=== PATIENT | male | born 1990 ===

== ENCOUNTER 2017-10-24 11:54 | Inpatient (IN) | payer MEDICAID ==
[2017-10-24 12:03] VITALS: BMI 24.8
[2017-10-24] MEDS ORDERED: Sodium Chloride 0.9% 1,000 ML IV ONE ×4 (12:46→17:28)
[2017-10-24] MEDS ORDERED: Sodium Chloride 0.9% 1,000 ML ONE (13:01)
[2017-10-24 13:05] LABS: BASO % 0.4 % (0.0-2.0); HEMOGLOBIN 16.1 g/dL (12.0-18.0); LYMPH # 0.4 K/uL (1.0-4.3); MEAN CELL VOLUME 96.3 fL (80.0-94.0); MEAN CORPUSCULAR HEMOGLOBIN 33.9 pg (27.0-31.0); MEAN CORPUSCULAR HGB CONC 35.2 g/dL (33.0-37.0); MEAN PLATELET VOLUME 8.5 fL (7.2-11.7); MONO # 1.3 K/uL (0.0-0.8); MONO % 12.8 % (0.0-10.0); NEUT # 8.7 K/uL (1.8-7.0); NEUT % 82.8 % (50.0-75.0); NRBC % 0.1 % (0.0-2.0); PLATELET COUNT 225 K/uL (130-400); RBC 4.74 Mil/uL (4.40-5.90); RED CELL DISTRIBUTION WIDTH 13.1 % (11.5-14.5); WHITE BLOOD COUNT 10.5 K/uL (4.8-10.8)
[2017-10-24 13:09] LABS: URINE BILIRUBIN NEGATIVE (NEGATIVE); URINE BLOOD NEGATIVE (NEGATIVE); URINE CLARITY Hazy (Clear); URINE COLOR Amber (YELLOW); URINE GLUCOSE (UA) NORMAL (Normal); URINE LEUKOCYTE ESTERASE NEG Leu/uL (Negative); URINE PROTEIN 2+ mg/dL (NEGATIVE)
[2017-10-24 13:25] LABS: ALB/GLOB RATIO 1.6 (1.0-2.1); ALBUMIN 5.3 g/dL (3.5-5.0); ALT/SGPT 55 U/L (21-72); AST/SGOT 52 U/L (17-59); BLOOD UREA NITROGEN 8 mg/dL (9-20); CALCIUM 9.6 mg/dl (8.6-10.4); GFR AFRICAN-AMERICAN > 60; GFR NON-AFRICAN AMERICAN > 60
[2017-10-24 13:39] LABS: LIPASE 10165 U/L (23-300)
[2017-10-24 13:48] LABS: BANDS 1 % (0-2); LYMPHOCYTE 6 % (20-40); MONOCYTE 10 % (0-10); NEUTROPHIL 83 % (50-75); PLATELET ESTIMATE NORMAL (NORMAL); TOTAL CELLS COUNTED 100
[2017-10-24] MEDS ORDERED: Morphine 4 MG/ML VIAL ONE (13:57)
--- NOTE | 2017-10-24 14:51 | C.PDOC ---
History Of Present Illness 26-year-old male, with no significant past medical or surgical history, presents to the ED for evaluation of epigastric abdominal pain which began this morning. Patient reports he had four episodes after drinking water and juice. Patient denies fever, chills, dysuria, hematuria, eating new foods. Time Seen by Provider: 10/24/17 12:18 Chief Complaint (Nursing): Abdominal Pain History Per: Patient History/Exam Limitations: no limitations Onset/Duration Of Symptoms: Hrs Current Symptoms Are (Timing): Still Present Location Of Pain/Discomfort: Epigastric Radiation Of Pain To:: None Quality Of Discomfort: "Pain" Associated Symptoms: Vomiting. denies: Fever, Chills, Urinary Symptoms Additional History Per: Patient Past Medical History Reviewed: Historical Data, Nursing Documentation, Vital Signs Vital Signs: Last Vital Signs Temp 98.6 F 10/24/17 18:24 Pulse 80 10/24/17 18:24 Resp 18 10/24/17 18:24 BP 136/100 H 10/24/17 18:24 Pulse Ox 99 10/24/17 18:24 - Medical History PMH: No Chronic Diseases Surgical History: No Surg Hx Family History: States: Unknown Family Hx - Social History Hx Alcohol Use: Yes Hx Substance Use: No - Immunization History Hx Tetanus Toxoid Vaccination: No Hx Influenza Vaccination: No Hx Pneumococcal Vaccination: No Review Of Systems Constitutional: Negative for: Fever, Chills Gastrointestinal: Positive for: Vomiting, Abdominal Pain (epigastric ) Genitourinary: Negative for: Dysuria, Hematuria Physical Exam - Physical Exam Appears: Non-toxic, No Acute Distress Skin: Normal Color, Warm, Dry Head: Atraumatic, Normacephalic Eye(s): bilateral: Normal Inspection Oral Mucosa: Moist Neck: Supple Chest: Symmetrical, No Deformity, No Tenderness Cardiovascular: Rhythm Regular, No Murmur Respiratory: Normal Breath Sounds, No Rales, No Rhonchi, No Wheezing Gastrointestinal/Abdominal: Bowel Sounds (active), Soft, Tenderness (mild, epigastric ), No Distention, No Guarding, No Rebound, No Hernia Extremity: Normal ROM, Capillary Refill (less than 2 seconds ) Neurological/Psych: Oriented x3, Normal Speech, Normal Cognition Gait: Steady ED Course And Treatment - Laboratory Results Result Diagrams: 10/24/17 12:56 10/24/17 12:56 O2 Sat by Pulse Oximetry: 98 (on RA) Pulse Ox Interpretation: Normal Medical Decision Making Medical Decision Making: Progress: Bloodwork, urinalysis, CT A/P ordered and reviewed. Morphine IVP, Zofran IVP, and IV Fluids administered. On first re-exam the patient reports no improvement of symptoms. Morphine IV ordered and NS IVF continued. The case was discussed with Dr. Ismael Nolasco (hospitalist) who agrees to admit the patient to the hospitalist service under Dr. Dickinson. Disposition - Disposition Disposition: HOSPITALIZED Disposition Time: 17:00 Condition: STABLE - Clinical Impression Clinical Impression: Acute pancreatitis - PA / [employer] / Resident Statement MD/DO has reviewed & agrees with the documentation as recorded. - Scribe Statement The provider has reviewed the documentation as recorded by the Scribe (Orin Nolasco) All medical record entries made by the Scribe were at my direction and personally dictated by me. I have reviewed the chart and agree that the record accurately reflects my personal performance of the history, physical exam, medical decision making, and the department course for this patient. I have also personally directed, reviewed, and agree with the discharge instructions and disposition.
[2017-10-24] MEDS ORDERED: Iodixanol 320 MG/ML 100 ML BOTTLE IV ONE (15:10)
--- NOTE | 2017-10-24 16:39 | CT ---
PROCEDURE: CT abdomen and pelvis dated 10/24/2017 HISTORY: Epigastric - abdominal pain, pancreatitis COMPARISON: None. TECHNIQUE: Contiguous axial images of the abdomen and pelvis of performed following intravenous injection of 100 cc Visipaque 320 contrast material. Additional 2D sagittal and coronal Sagittal reformats generated. Radiation dose: Total exam DLP = 299 mGy-cm. This CT exam was performed using one or more of the following dose reduction techniques: Automated exposure control, adjustment of the mA and/or kV according to patient size, and/or use of iterative reconstruction technique. FINDINGS: LOWER THORAX: Mild passive/dependent type atelectasis both posterior lower lung zones. No mundo effusion. No evidence of basilar pneumothorax. . There is a small calcified granuloma the right lateral lung base. Small hiatal hernia. Heart size within range of normal. No significant pericardial effusion. LIVER: Liver exhibits relatively normal size measuring just over 17 cm in CC dimension. Moderate to fairly significant fatty hepatic infiltration. No obvious hepatic mass or collection. Portal and splenic veins are opacified. GALLBLADDER AND BILE DUCTS: Gallbladder physiologically distended. No evidence of intraluminal gallbladder calculi. PANCREAS: The pancreatic head and body is edematous in appearance consistent with this patient's history of pancreatitis. There are a infiltration changes seen in the peripancreatic mesentery with fluid seen along the posterior body of pancreas extending into the left pararenal space and left paracolic gutter. Is also small amount of infiltration and fluid seen adjacent to the descending and transverse portion of the duodenum extending into the right para renal space and right paracolic gutter. Infiltration changes also seen in mesenteries upper abdomen. . Ascites fluid seen in the mid to lower posterior abdomen adjacent to several loops of small bowel with a moderate ascites fluid within the pelvis as well. . SPLEEN: Spleen exhibits normal size and attenuation pattern without mass collection or calcification. ADRENALS: No obvious adrenal lesions KIDNEYS AND URETERS: Kidneys demonstrate relatively symmetric nephrograms. No evidence of nephrolithiasis or hydronephrosis. There is a cortical defect posterior superior margin of the right kidney likely representing scarring with a small subjacent 14 mm cyst low-attenuation focus that may represent hyperdense cyst. . There appears be small amount of left perirenal fluid. BLADDER: Urinary bladder incompletely distended which presumably accounts thick-walled appearance. Muscular hypertrophy may contribute. Correlation with urinalysis recommended to assess the cystitis. REPRODUCTIVE: Prostate gland unremarkable APPENDIX: What is felt to represent the normal appendix best seen on axial image number [id number]. No periappendiceal inflammatory changes. BOWEL: Evaluation of the bowel is somewhat limited due to the lack of oral contrast material. Stomach is distended with air. Hyperdense debris is present within the lumen of the stomach as well as scattered several loops of small bowel and at ascending/proximal transverse colon. . B distal transverse colon/splenic flexure region descending and sigmoid colon are collapsed therefore difficult to evaluate. PERITONEUM: As above. No free intraperitoneal air. Small fat containing bilateral inguinal hernias. There is small fat containing umbilical hernia. LYMPH NODES: Unremarkable. No enlarged lymph nodes. VASCULATURE: Unremarkable. No no evidence of abdominal aortic or iliac artery aneurysms. BONES: Osseous structures intact. No significant degenerative spondylosis. OTHER FINDINGS: None. IMPRESSION: Findings consistent with acute pancreatitis with surrounding peripancreatic infiltration and fluid which extends inferiorly along the left and right para renal and paracolic gutter spaces. Small amount of ascites seen within the mid lower abdomen with moderate amount of the ascites fluid present within the pelvis. Wall thickening urinary bladder likely due to incomplete distention and muscular hypertrophy however cystitis not excluded ; correlation with urinalysis. Fatty hepatic infiltration.
[2017-10-24 19:25] VITALS: RESP 20
[2017-10-24] MEDS: Morphine 4 MG/ML VIAL IVP PRN (21:33)
[2017-10-24] MEDS: Sodium Chloride 0.9% 1,000 ML IV SCH (21:36)
--- NOTE | 2017-10-24 21:37 | CP.PCM.HP ---
<Brennan Sevilla - Last Filed: 10/24/17 21:16> History of Present Illness - History of Present Illness History of Present Illness: PGY1 Medicine H+P for Dr. Dickinson Patient is a 26 year old male with no significant past medical history is presenting to the hospital with a complaint of abdominal pain. The pain started last night and is described as sharp in nature. The pain is most severe in the epigastric region, radiating to his back. This is the first time he has ever had this pain. He attempted to drink some water and juice this morning but vomited soon after. He denies any blood in the vomit. He states that he drank 4 - 24oz beers yesterday after work. He usually only drinks 2 times per week. He has never experienced alcohol withdrawal symptoms and states that he does not feel like he needs to drink every day. He was treated in the emergency room but is still complaining of abdominal pain, but is no longer nauseous at this time. Denies fevers, chills, diarrhea, constipation, chest pain, shortness of breath, palpitations, headaches, vision changes, numbness, tingling or difficulty with balance. PMH: denies PSH: denies Family: unknown Social: drinks 4-24oz. beers two times per week (last drink yesterday), denies tobacco and illicit drug use. Works at a restaurant in [place]. Allergies: NKDA Present on Admission - Present on Admission Any Indicators Present on Admission: No Review of Systems - Review of Systems All systems: reviewed and no additional remarkable complaints except (as per HPI ) - Constitutional Constitutional: As Per HPI - EENT Eyes: As Per HPI Ears: As Per HPI Nose/Mouth/Throat: As Per HPI - Cardiovascular Cardiovascular: As Per HPI - Respiratory Respiratory: As Per HPI - Gastrointestinal Gastrointestinal: As Per HPI - Musculoskeletal Musculoskeletal: As Per HPI - Integumentary Integumentary: As Per HPI - Neurological Neurological: As Per HPI - Psychiatric Psychiatric: As Per HPI - Endocrine Endocrine: As Per HPI - Hematologic/Lymphatic Hematologic: As Per HPI Past Patient History - Infectious Disease Hx of Infectious Diseases: None - Past Medical History & Family History Past Medical History?: Yes - Past Social History Smoking Status: Unknown If Ever Smoked - MUSCULOSKELETAL/RHEUMATOLOGICAL Hx Falls: No - PSYCHIATRIC Hx Substance Use: No - ANESTHESIA Hx Anesthesia: Yes Hx Anesthesia Reactions: No Meds Allergies/Adverse Reactions: Allergies Allergy/AdvReac Type Severity Reaction Status Date / Time No Known Allergies Allergy Verified 10/24/17 11:57 Physical Exam - Constitutional Appears: Non-toxic, In Acute Distress - Head Exam Head Exam: ATRAUMATIC, NORMOCEPHALIC - Eye Exam Eye Exam: EOMI, Normal appearance. absent: Scleral icterus Pupil Exam: NORMAL ACCOMODATION - ENT Exam ENT Exam: Mucous Membranes Moist - Neck Exam Neck exam: Negative for: Lymphadenopathy - Respiratory Exam Respiratory Exam: Clear to Auscultation Bilateral, NORMAL BREATHING PATTERN. absent: Accessory Muscle Use, Rales, Rhonchi, Wheezes, Respiratory Distress - Cardiovascular Exam Cardiovascular Exam: REGULAR RHYTHM, +S1, +S2 - GI/Abdominal Exam GI & Abdominal Exam: Distended (per patient, mildly distended ), Guarding, Soft , Tenderness (diffuse, epigastric>upper quadrants b/l> lower quadrants b/l). absent: Firm, Hernia, Rigid - Extremities Exam Extremities exam: Positive for: normal inspection, pedal pulses present. Negative for: calf tenderness, pedal edema - Back Exam Back exam: absent: CVA tenderness (L), CVA tenderness (R) - Neurological Exam Neurological exam: Alert, CN II-XII Intact, Oriented x3 - Psychiatric Exam Psychiatric exam: Normal Affect, Normal Mood - Skin Skin Exam: Dry, Warm Results - Vital Signs Recent Vital Signs: Last Vital Signs Temp 98.8 F 10/24/17 19:00 Pulse 89 10/24/17 19:00 Resp 20 10/24/17 19:00 BP 142/86 10/24/17 19:00 Pulse Ox 98 10/24/17 19:04 - Labs Result Diagrams: 10/24/17 12:56 10/24/17 12:56 Labs: Laboratory Results - last 24 hr 10/24/17 10/24/17 10/24/17 12:56 12:56 12:56 WBC 10.5 RBC 4.74 Hgb 16.1 Hct 45.6 MCV 96.3 H MCH 33.9 H MCHC 35.2 RDW 13.1 Plt Count 225 MPV 8.5 Neut % (Auto) 82.8 H Lymph % (Auto) 4.0 L [place] % (Auto) 12.8 H Eos % (Auto) 0.0 Baso % (Auto) 0.4 Neut # (Auto) 8.7 H Lymph # (Auto) 0.4 L [place] # (Auto) 1.3 H Eos # (Auto) 0.0 Baso # (Auto) 0.0 Neutrophils % (Manual) 83 H Band Neutrophils % 1 Lymphocytes % (Manual) 6 L Monocytes % (Manual) 10 Platelet Estimate Normal Sodium 138 Potassium 4.0 Chloride 93 L Carbon Dioxide 27 Anion Gap 22 H BUN 8 L Creatinine 0.6 L Est GFR ( Amer) > 60 Est GFR (Non-Af Amer) > 60 Random Glucose 109 Calcium 9.6 Total Bilirubin 1.3 AST 52 ALT 55 Alkaline Phosphatase 67 Lactate Dehydrogenase 654 H Total Protein 8.6 H Albumin 5.3 H Globulin 3.3 Albumin/Globulin Ratio 1.6 Lipase 65416 H Urine Color Aruna Urine Clarity Hazy Urine pH 6.0 Ur Specific [place] 1.026 Urine Protein 2+ H Urine Glucose (UA) Normal Urine Ketones Trace Urine Blood Negative Urine Nitrate Negative Urine Bilirubin Negative Urine Urobilinogen 4.0 Ur Leukocyte Esterase Neg Urine WBC (Auto) 1 Assessment & Plan (1) Acute pancreatitis Assessment and Plan: most likely 2/2 alcohol Abd/Pelvis CT 10/24: Findings consistent with acute pancreatitis with surrounding peripancreatic infiltration and fluid which extends inferiorly along the left and right para renal and paracolic gutter spaces. Small amount of ascites seen within the mid lower abdomen with moderate amount of the ascites fluid present within the pelvis. Wall thickening urinary bladder likely due to incomplete distention and muscular hypertrophy however cystitis not excluded ; correlation with urinalysis. Fatty hepatic infiltration. Lipase 97609 Morphine 2mg IVP Q4H prn Zofran 4mg IVP Q6H prn NS @150mL/hr NPO CIWA protocol prn Ativan 2mg IVP Q6H prn Status: Acute (2) Prophylactic measure Assessment and Plan: SCDs only - AC not indicated, patient ambulates Protonix 40mg IVP daily Status: Acute - Assessment and Plan (Free Text) Assessment: case discussed with Dr. Teena Amin Di PGY1 <Altaf Dickinson - Last Filed: 10/25/17 07:03> Results - Vital Signs Recent Vital Signs: Last Vital Signs Temp 99.3 F 10/24/17 23:32 Pulse 80 10/24/17 23:32 Resp 20 10/24/17 23:32 BP 151/90 H 10/24/17 23:32 Pulse Ox 98 10/24/17 23:32 - Labs Result Diagrams: 10/24/17 12:56 10/24/17 12:56 Labs: Laboratory Results - last 24 hr 10/24/17 10/24/17 10/24/17 12:56 12:56 12:56 WBC 10.5 RBC 4.74 Hgb 16.1 Hct 45.6 MCV 96.3 H MCH 33.9 H MCHC 35.2 RDW 13.1 Plt Count 225 MPV 8.5 Neut % (Auto) 82.8 H Lymph % (Auto) 4.0 L [place] % (Auto) 12.8 H Eos % (Auto) 0.0 Baso % (Auto) 0.4 Neut # (Auto) 8.7 H Lymph # (Auto) 0.4 L [place] # (Auto) 1.3 H Eos # (Auto) 0.0 Baso # (Auto) 0.0 Neutrophils % (Manual) 83 H Band Neutrophils % 1 Lymphocytes % (Manual) 6 L Monocytes % (Manual) 10 Platelet Estimate Normal Sodium 138 Potassium 4.0 Chloride 93 L Carbon Dioxide 27 Anion Gap 22 H BUN 8 L Creatinine 0.6 L Est GFR ( Amer) > 60 Est GFR (Non-Af Amer) > 60 Random Glucose 109 Calcium 9.6 Total Bilirubin 1.3 AST 52 ALT 55 Alkaline Phosphatase 67 Lactate Dehydrogenase 654 H Total Protein 8.6 H Albumin 5.3 H Globulin 3.3 Albumin/Globulin Ratio 1.6 Lipase 18108 H Urine Color Aruna Urine Clarity Hazy Urine pH 6.0 Ur Specific [place] 1.026 Urine Protein 2+ H Urine Glucose (UA) Normal Urine Ketones Trace Urine Blood Negative Urine Nitrate Negative Urine Bilirubin Negative Urine Urobilinogen 4.0 Ur Leukocyte Esterase Neg Urine WBC (Auto) 1 Attending/Attestation - Attestation I have personally seen and examined this patient.: Yes I have fully participated in the care of the patient.: Yes I have reviewed all pertinent clinical information: Yes Notes (Text): Pancreatitis most likely related to alcohol consumption Mentions drinks twice a wk, hence less likely to go into withdrawal Plan IVF pain control PPI NPO PRN ativan Thiamine iv x 3days See orders for detail.
[2017-10-25] MEDS: Sodium Chloride 0.9% 1,000 ML IV SCH ×4 (04:35→23:03)
--- NOTE | 2017-10-25 08:55 | CP.PCM.PN ---
<En Hooper - Last Filed: 10/25/17 08:51> Subjective - Date & Time of Evaluation Date of Evaluation: 10/25/17 Time of Evaluation: 08:51 - Subjective Subjective: PGY-[address] Nolsaco's service: Pt seen and examined at bedside. Nursing reports no acute events overnight. Objective - Vital Signs/Intake and Output Vital Signs (last 24 hours): Temp Pulse Resp BP Pulse Ox 99.3 F 80 20 151/90 H 98 10/24/17 23:32 10/24/17 23:32 10/24/17 23:32 10/24/17 23:32 10/24/17 23:32 Intake and Output: 10/25/17 10/25/17 06:59 18:59 Intake Total 1350 Balance 1350 - Medications Medications: Current Medications Enoxaparin Sodium (Lovenox) 40 mg SC DAILY [facility] Sodium Chloride (Sodium Chloride 0.9%) 1,000 mls @ 150 mls/hr IV .Q6H40M [facility] Last Admin: 10/25/17 04:35 Dose: 150 mls/hr Lorazepam (Ativan) 2 mg IVP Q6H PRN PRN Reason: Symptoms of alcohol withdrawl Morphine Sulfate (Morphine) 2 mg IVP Q4H PRN PRN Reason: Pain, moderate (4-7) Last Admin: 10/24/17 21:33 Dose: 2 mg Ondansetron HCl (Zofran Inj) 4 mg IVP Q6 PRN PRN Reason: Nausea/Vomiting Last Admin: 10/24/17 21:34 Dose: 4 mg Pantoprazole Sodium (Protonix Inj) 40 mg IVP DAILY [facility] Pneumococcal Polyvalent Vaccine (Pneumovax 23 Vaccine) 0.5 ml IM .ONCE ONE Stop: 10/25/17 10:01 Thiamine HCl (Vitamin B1 Inj) 100 mg IV DAILY [place] Stop: 10/27/17 10:01 - Labs Labs: 10/24/17 12:56 10/24/17 12:56 - Additional Findings Additional findings: - Constitutional Appears: Non-toxic, In Acute Distress - Head Exam Head Exam: ATRAUMATIC, NORMOCEPHALIC - Eye Exam Eye Exam: EOMI, Normal appearance. absent: Scleral icterus Pupil Exam: NORMAL ACCOMODATION - ENT Exam ENT Exam: Mucous Membranes Moist - Neck Exam Neck exam: Negative for: Lymphadenopathy - Respiratory Exam Respiratory Exam: Clear to Auscultation Bilateral, NORMAL BREATHING PATTERN. absent: Accessory Muscle Use, Rales, Rhonchi, Wheezes, Respiratory Distress - Cardiovascular Exam Cardiovascular Exam: REGULAR RHYTHM, +S1, +S2 - GI/Abdominal Exam GI & Abdominal Exam: Guarding, Soft, Tenderness (diffuse, epigastric>upper quadrants b/l> lower quadrants b/l). absent: Firm, Hernia, Rigid - Extremities Exam Extremities exam: Positive for: normal inspection, pedal pulses present. Negative for: calf tenderness, pedal edema - Back Exam Back exam: absent: CVA tenderness (L), CVA tenderness (R) - Neurological Exam Neurological exam: Alert, CN II-XII Intact, Oriented x3 - Psychiatric Exam Psychiatric exam: Normal Affect, Normal Mood - Skin Skin Exam: Dry, Warm Assessment and Plan - Assessment and Plan (Free Text) Plan: Acute pancreatitis Admit to med/surg Etiology: most likely 2/2 alcohol Abd/Pelvis CT 10/24: Findings consistent with acute pancreatitis with surrounding peripancreatic infiltration and fluid which extends inferiorly along the left and right para renal and paracolic gutter spaces. Small amount of ascites seen within the mid lower abdomen with moderate amount of the ascites fluid present within the pelvis. Wall thickening urinary bladder likely due to incomplete distention and muscular hypertrophy however cystitis not excluded ; correlation with urinalysis. Fatty hepatic infiltration. Lipase 27896 Morphine 2mg IVP Q4H prn Zofran 4mg IVP Q6H prn NS @150mL/hr NPO ETOH abuse disorder CIWA protocol prn Ativan 2mg IVP Q6H prn Prophylactic measure SCDs only - AC not indicated, patient ambulates Protonix 40mg IVP daily <Villanueva,Peter H - Last Filed: 10/25/17 10:40> Objective - Vital Signs/Intake and Output Vital Signs (last 24 hours): Temp Pulse Resp BP Pulse Ox 98.7 F 79 20 141/93 H 98 10/25/17 08:56 10/25/17 08:56 10/25/17 08:56 10/25/17 08:56 10/25/17 08:56 Intake and Output: 10/25/17 10/25/17 06:59 18:59 Intake Total 1350 Balance 1350 - Medications Medications: Current Medications Enoxaparin Sodium (Lovenox) 40 mg SC DAILY [facility] Last Admin: 10/25/17 09:16 Dose: 40 mg Sodium Chloride (Sodium Chloride 0.9%) 1,000 mls @ 150 mls/hr IV .Q6H40M [facility] Last Admin: 10/25/17 09:21 Dose: 150 mls/hr Lorazepam (Ativan) 2 mg IVP Q6H PRN PRN Reason: Symptoms of alcohol withdrawl Morphine Sulfate (Morphine) 2 mg IVP Q4H PRN PRN Reason: Pain, moderate (4-7) Last Admin: 10/24/17 21:33 Dose: 2 mg Ondansetron HCl (Zofran Inj) 4 mg IVP Q6 PRN PRN Reason: Nausea/Vomiting Last Admin: 10/24/17 21:34 Dose: 4 mg Pantoprazole Sodium (Protonix Inj) 40 mg IVP DAILY [facility] Last Admin: 10/25/17 09:16 Dose: 40 mg Thiamine HCl (Vitamin B1 Inj) 100 mg IV DAILY [facility] Stop: 10/27/17 10:01 Last Admin: 10/25/17 09:19 Dose: 100 mg - Labs Labs: 10/25/17 08:58 10/25/17 08:58 Attending/Attestation - Attestation I have personally seen and examined this patient.: Yes I have fully participated in the care of the patient.: Yes I have reviewed all pertinent clinical information, including history, physical exam and plan: Yes Notes (Text): 10/25/17 10:37 Medical attending: Patient was seen and examined by me. Agree with the above note by the resident The patient when I saw him explained that the pain was less than before with him explaining that it was about a 4/10. He did not report nasuea or vommitting. When I asked him about alcohol withdrawl questions he reported no shaking, no tremors, no anxiety. For now will keep patient on IVF @ 150 cc. Will try a clear liquid diet since he asked for it but I cautioned him in Bulgarian that he should stop if the clear liquid diet causes pain. Morphine IV PRN for pain. Will recheck Lipase again tommorow. thank you Vinay Villanueva
[2017-10-25 09:14] LABS: BASO % 0.2 % (0.0-2.0); HEMOGLOBIN 14.4 g/dL (12.0-18.0); LYMPH # 0.5 K/uL (1.0-4.3); LYMPH % 5.3 % (20.0-40.0); MEAN CELL VOLUME 97.6 fL (80.0-94.0); MEAN CORPUSCULAR HEMOGLOBIN 34.1 pg (27.0-31.0); MONO # 0.8 K/uL (0.0-0.8); MONO % 8.8 % (0.0-10.0); NEUT # 8.2 K/uL (1.8-7.0); NEUT % 85.7 % (50.0-75.0); PLATELET COUNT 191 K/uL (130-400); RBC 4.23 Mil/uL (4.40-5.90); RED CELL DISTRIBUTION WIDTH 13.2 % (11.5-14.5); WHITE BLOOD COUNT 9.5 K/uL (4.8-10.8)
[2017-10-25] MEDS: Enoxaparin 40 mg Syringe SC SCH (09:16)
[2017-10-25] MEDS: Thiamine 100 mg/ml Inj IV SCH (09:19)
[2017-10-25 09:30] LABS: ALB/GLOB RATIO 1.6 (1.0-2.1); ALT/SGPT 39 U/L (21-72); AST/SGOT 36 U/L (17-59); BLOOD UREA NITROGEN 5 mg/dL (9-20); CALCIUM 8.6 mg/dl (8.6-10.4); GFR AFRICAN-AMERICAN > 60; GFR NON-AFRICAN AMERICAN > 60
[2017-10-25] MEDS ORDERED: Pneumococcal 23-Valent Vaccine IM ONE (10:00)
[2017-10-25 11:06] LABS: BANDS 1 % (0-2); LYMPHOCYTE 3 % (20-40); MONOCYTE 2 % (0-10); NEUTROPHIL 94 % (50-75); PLATELET ESTIMATE NORMAL (NORMAL); TOTAL CELLS COUNTED 100
[2017-10-26] MEDS: Sodium Chloride 0.9% 1,000 ML IV SCH ×4 (00:03→16:28)
[2017-10-26] MEDS: Morphine 4 MG/ML VIAL IVP PRN (04:06)
[2017-10-26 07:15] LABS: BASO # 0.1 K/uL (0.0-0.2); BASO % 0.5 % (0.0-2.0); EOS % 0.2 % (0.0-4.0); HEMOGLOBIN 13.5 g/dL (12.0-18.0); LYMPH # 0.8 K/uL (1.0-4.3); LYMPH % 6.3 % (20.0-40.0); MEAN CELL VOLUME 97.6 fL (80.0-94.0); MEAN CORPUSCULAR HGB CONC 34.8 g/dL (33.0-37.0); MEAN PLATELET VOLUME 9.2 fL (7.2-11.7); MONO # 1.1 K/uL (0.0-0.8); MONO % 8.5 % (0.0-10.0); NEUT # 11.3 K/uL (1.8-7.0); NEUT % 84.5 % (50.0-75.0); PLATELET COUNT 178 K/uL (130-400); RBC 3.98 Mil/uL (4.40-5.90); RED CELL DISTRIBUTION WIDTH 13.1 % (11.5-14.5); WHITE BLOOD COUNT 13.3 K/uL (4.8-10.8)
[2017-10-26 07:38] LABS: ALB/GLOB RATIO 1.4 (1.0-2.1); ALBUMIN 3.6 g/dL (3.5-5.0); ALT/SGPT 35 U/L (21-72); AST/SGOT 39 U/L (17-59); BLOOD UREA NITROGEN < 2 mg/dL (9-20); CALCIUM 8.2 mg/dl (8.6-10.4); GFR AFRICAN-AMERICAN > 60; GFR NON-AFRICAN AMERICAN > 60; LIPASE 1058 U/L (23-300)
--- NOTE | 2017-10-26 08:29 | CP.PCM.PN ---
Subjective - Date & Time of Evaluation Date of Evaluation: 10/26/17 Time of Evaluation: 08:26 - Subjective Subjective: PGY-[address] Nolasco's service: Pt seen and examined at bedside. Nursing reports patient febrile overnight. Patient reports improved abdominal pain from yesterday, rates pain as 2-3/10. Tolerated liquid diet yesterday. He stated he feels hungry and would like to try regular food today. Denies nausea, vomiting, headache, chills, tremors, or formication. Objective - Vital Signs/Intake and Output Vital Signs (last 24 hours): Temp Pulse Resp BP Pulse Ox 100.2 F H 90 20 148/90 97 10/26/17 06:00 10/26/17 00:00 10/26/17 00:00 10/26/17 06:00 10/26/17 00:00 Intake and Output: 10/26/17 10/26/17 06:59 18:59 Intake Total 2880 Balance 2880 - Medications Medications: Current Medications Acetaminophen (Tylenol 325mg Tab) 650 mg PO Q6 PRN PRN Reason: Fever >100.4 F Last Admin: 10/25/17 23:58 Dose: 650 mg Enoxaparin Sodium (Lovenox) 40 mg SC DAILY [facility] Last Admin: 10/25/17 09:16 Dose: 40 mg Sodium Chloride (Sodium Chloride 0.9%) 1,000 mls @ 150 mls/hr IV .Q6H40M [facility] Last Admin: 10/26/17 06:14 Dose: 150 mls/hr Lorazepam (Ativan) 2 mg IVP Q6H PRN PRN Reason: Symptoms of alcohol withdrawl Morphine Sulfate (Morphine) 2 mg IVP Q4H PRN PRN Reason: Pain, moderate (4-7) Last Admin: 10/26/17 04:06 Dose: 2 mg Ondansetron HCl (Zofran Inj) 4 mg IVP Q6 PRN PRN Reason: Nausea/Vomiting Last Admin: 10/24/17 21:34 Dose: 4 mg Pantoprazole Sodium (Protonix Inj) 40 mg IVP DAILY [facility] Last Admin: 10/25/17 09:16 Dose: 40 mg Thiamine HCl (Vitamin B1 Inj) 100 mg IV DAILY [facility] Stop: 10/27/17 10:01 Last Admin: 10/25/17 09:19 Dose: 100 mg - Labs Labs: 10/26/17 07:08 10/26/17 07:08 - Additional Findings Additional findings: - Constitutional Appears: Non-toxic, In Acute Distress - Head Exam Head Exam: ATRAUMATIC, NORMOCEPHALIC - Eye Exam Eye Exam: EOMI, Normal appearance. absent: Scleral icterus Pupil Exam: NORMAL ACCOMODATION - ENT Exam ENT Exam: Mucous Membranes Moist - Neck Exam Neck exam: Negative for: Lymphadenopathy - Respiratory Exam Respiratory Exam: Clear to Auscultation Bilateral, NORMAL BREATHING PATTERN. absent: Accessory Muscle Use, Rales, Rhonchi, Wheezes, Respiratory Distress - Cardiovascular Exam Cardiovascular Exam: REGULAR RHYTHM, +S1, +S2 - GI/Abdominal Exam GI & Abdominal Exam: Guarding, Soft, Tenderness (diffuse, epigastric>upper quadrants b/l> lower quadrants b/l). absent: Firm, Hernia, Rigid - Extremities Exam Extremities exam: Positive for: normal inspection, pedal pulses present. Negative for: calf tenderness, pedal edema - Back Exam Back exam: absent: CVA tenderness (L), CVA tenderness (R) - Neurological Exam Neurological exam: Alert, CN II-XII Intact, Oriented x3 - Psychiatric Exam Psychiatric exam: Normal Affect, Normal Mood - Skin Skin Exam: Dry, Warm Assessment and Plan - Assessment and Plan (Free Text) Plan: Sepsis Criteria: Temp> 100.9, WBC > 12K Source: Pancreatitis f/u [facility] shock Acute pancreatitis Admit to med/surg Febrile, WBC Etiology: most likely 2/2 alcohol Abd/Pelvis CT 10/24: Findings consistent with acute pancreatitis with surrounding peripancreatic infiltration and fluid which extends inferiorly along the left and right para renal and paracolic gutter spaces. Small amount of ascites seen within the mid lower abdomen with moderate amount of the ascites fluid present within the pelvis. Wall thickening urinary bladder likely due to incomplete distention and muscular hypertrophy however cystitis not excluded ; correlation with urinalysis. Fatty hepatic infiltration. Lipase 11568 on admission; improved on repeat ~1000 UA WNL Tylenol 650mg PO Q6H PRN fever Morphine 2mg IVP Q4H prn Zofran 4mg IVP Q6H prn NS @150mL/hr Liquid diet - ADAT ETOH abuse disorder CIWA protocol prn Ativan 2mg IVP Q6H prn Thiamine/MV/Folic Acid Prophylactic measure SCDs only Protonix 40mg IVP daily Lovenox 40mg SC daily [facility] [place] PGY-2 D/W Dr. Villanueva
[2017-10-26] MEDS: Potassium Chloride 20 mEq ER Tab PO SCH ×2 (08:59→10:59)
[2017-10-26 09:13] LABS: BANDS 6 % (0-2); LYMPHOCYTE 7 % (20-40); MONOCYTE 8 % (0-10); NEUTROPHIL 79 % (50-75); PLATELET ESTIMATE NORMAL (NORMAL); TOTAL CELLS COUNTED 100
[2017-10-26 09:14] LABS: ANISOCYTOSIS SLIGHT; HYPOCHROMIC SLIGHT; POLYCHROMIC SLIGHT
[2017-10-26 09:15] LABS: VENOUS BLOOD GAS BASE EXCESS 3.7 mmol/L (0.0-2.0); VENOUS BLOOD GAS PCO2 49 mmHg (40-60); VENOUS BLOOD GAS PO2 19 mm/Hg (30-55); VENOUS BLOOD PH 7.39 (7.32-7.43)
[2017-10-26 09:15] LABS: LARGE PLATELETS PRESENT
[2017-10-26] MEDS: Enoxaparin 40 mg Syringe SC SCH (10:09)
[2017-10-26] MEDS: Multiple Vitamins Tab PO SCH (10:09)
[2017-10-26] MEDS: Thiamine 100 mg/ml Inj IV SCH (10:58)
[2017-10-26] MEDS: Piperacill/Tazo 3.375gm in Dex 3.375 GM/50 ML BAG IVPB SCH ×3 (11:48→22:17)
[2017-10-26] MEDS: metroNIDAZOLE IV 500 mg/100 ml 500 MG/100 ML BAG IVPB SCH ×2 (12:39→21:10)
[2017-10-27] MEDS: metroNIDAZOLE IV 500 mg/100 ml 500 MG/100 ML BAG IVPB SCH ×3 (04:00→20:36)
[2017-10-27] MEDS: Sodium Chloride 0.9% 1,000 ML IV SCH ×4 (05:14→22:43)
[2017-10-27] MEDS: Piperacill/Tazo 3.375gm in Dex 3.375 GM/50 ML BAG IVPB SCH ×4 (05:14→22:42)
[2017-10-27 07:58] LABS: BASO % 0.2 % (0.0-2.0); EOS % 0.2 % (0.0-4.0); HEMOGLOBIN 12.5 g/dL (12.0-18.0); LYMPH # 0.6 K/uL (1.0-4.3); LYMPH % 4.4 % (20.0-40.0); MEAN CELL VOLUME 97.1 fL (80.0-94.0); MEAN CORPUSCULAR HEMOGLOBIN 33.9 pg (27.0-31.0); MEAN CORPUSCULAR HGB CONC 34.9 g/dL (33.0-37.0); MEAN PLATELET VOLUME 9.3 fL (7.2-11.7); MONO # 1.4 K/uL (0.0-0.8); MONO % 10.4 % (0.0-10.0); NEUT # 11.1 K/uL (1.8-7.0); NEUT % 84.8 % (50.0-75.0); PLATELET COUNT 203 K/uL (130-400); RBC 3.68 Mil/uL (4.40-5.90); RED CELL DISTRIBUTION WIDTH 12.9 % (11.5-14.5); WHITE BLOOD COUNT 13.1 K/uL (4.8-10.8)
[2017-10-27 08:09] LABS: ALB/GLOB RATIO 1.4 (1.0-2.1); ALBUMIN 3.9 g/dL (3.5-5.0); ALT/SGPT 38 U/L (21-72); AST/SGOT 38 U/L (17-59); BLOOD UREA NITROGEN 3 mg/dL (9-20); CALCIUM 8.7 mg/dl (8.6-10.4); GFR AFRICAN-AMERICAN > 60; GFR NON-AFRICAN AMERICAN > 60
[2017-10-27] MEDS: Thiamine 100 mg/ml Inj IV SCH (09:53)
[2017-10-27] MEDS: Multiple Vitamins Tab PO SCH (09:53)
[2017-10-27] MEDS: Enoxaparin 40 mg Syringe SC SCH (09:54)
[2017-10-27 10:25] LABS: BANDS 9 % (0-2); LYMPHOCYTE 6 % (20-40); MONOCYTE 9 % (0-10); NEUTROPHIL 76 % (50-75); PLATELET ESTIMATE NORMAL (NORMAL); TOTAL CELLS COUNTED 100
[2017-10-27 10:26] LABS: ANISOCYTOSIS SLIGHT; HYPOCHROMIC SLIGHT; POIKILOCYTOSIS SLIGHT
[2017-10-27] MEDS ORDERED: Potassium Chloride 20 mEq ER Tab PO ONE (11:08)
[2017-10-27] MEDS ORDERED: Potassium Chloride 20 mEq ER Tab PO SCH (11:15)
[2017-10-28] MEDS: metroNIDAZOLE IV 500 mg/100 ml 500 MG/100 ML BAG IVPB SCH ×2 (03:43→11:08)
[2017-10-28 04:01] VITALS: BP 148/96; PULSE 90; TEMP 98.7; O2SAT 98
[2017-10-28] MEDS: Piperacill/Tazo 3.375gm in Dex 3.375 GM/50 ML BAG IVPB SCH ×2 (05:19→09:59)
[2017-10-28 06:53] LABS: BASO % 0.2 % (0.0-2.0); EOS # 0.1 K/uL (0.0-0.7); EOS % 0.7 % (0.0-4.0); HEMOGLOBIN 12.5 g/dL (12.0-18.0); LYMPH # 0.6 K/uL (1.0-4.3); LYMPH % 5.2 % (20.0-40.0); MEAN CORPUSCULAR HEMOGLOBIN 33.6 pg (27.0-31.0); MEAN PLATELET VOLUME 8.6 fL (7.2-11.7); MONO # 1.5 K/uL (0.0-0.8); NEUT # 10.3 K/uL (1.8-7.0); NEUT % 81.9 % (50.0-75.0); PLATELET COUNT 253 K/uL (130-400); RBC 3.71 Mil/uL (4.40-5.90); RED CELL DISTRIBUTION WIDTH 12.8 % (11.5-14.5); WHITE BLOOD COUNT 12.5 K/uL (4.8-10.8)
[2017-10-28 07:43] LABS: ALB/GLOB RATIO 1.2 (1.0-2.1); ALBUMIN 3.8 g/dL (3.5-5.0); ALT/SGPT 34 U/L (21-72); AST/SGOT 37 U/L (17-59); BLOOD UREA NITROGEN 7 mg/dL (9-20); CALCIUM 8.4 mg/dl (8.6-10.4); GFR AFRICAN-AMERICAN > 60; GFR NON-AFRICAN AMERICAN > 60
[2017-10-28 08:17] LABS: BANDS 4 % (0-2); LYMPHOCYTE 6 % (20-40); MONOCYTE 11 % (0-10); NEUTROPHIL 79 % (50-75); NUCLEATED RED BLOOD CELL 1 % (0-0); TOTAL CELLS COUNTED 100
[2017-10-28 08:18] LABS: PLATELET ESTIMATE NORMAL (NORMAL)
[2017-10-28] MEDS: Sodium Chloride 0.9% 1,000 ML IV SCH (08:19)
[2017-10-28] MEDS: Multiple Vitamins Tab PO SCH (09:15)
[2017-10-28] MEDS: Enoxaparin 40 mg Syringe SC SCH (09:18)
[2017-10-28] MEDS ORDERED: Potassium Chloride 20 mEq ER Tab PO ONE (09:39)
[2017-10-28] MEDS ORDERED: Pantoprazole 40 mg EC Tab PO SCH (10:00)
[2017-10-28] MEDS ORDERED: Pneumococcal 23-Valent Vaccine IM ONE (10:00)
--- NOTE | 2017-10-28 13:37 | CP.PCM.PN ---
Subjective - Date & Time of Evaluation Date of Evaluation: 10/27/17 Time of Evaluation: 11:00 - Subjective Subjective: Please note that this is a late entry. The patient was seen and examined on 10/27 at approx 11:00am. The chart was reviewed and the case was discussed with the attending and staff. PGY-[address] Moy. No acute events overnight. Patient stated his abdominal pain had improved and that he was tolerating a full solid foods diet without issue. He denied fevers but stated he felt sweaty overnight. Otherwise he had no complaints. He denied nausea, vomiting, chest pain, bleeding. Objective - Vital Signs/Intake and Output Vital Signs (last 24 hours): Temp Pulse Resp BP Pulse Ox 98.7 F 90 20 148/96 H 98 10/28/17 04:00 10/28/17 04:00 10/28/17 04:00 10/28/17 04:00 10/28/17 04:00 Intake and Output: 10/28/17 10/28/17 06:59 18:59 Intake Total 2360 Balance 2360 - Medications Medications: Current Medications Acetaminophen (Tylenol 325mg Tab) 650 mg PO Q6 PRN PRN Reason: Fever >100.4 F Last Admin: 10/26/17 16:28 Dose: 650 mg Enoxaparin Sodium (Lovenox) 40 mg SC DAILY [facility] Last Admin: 10/28/17 09:18 Dose: Not Given Folic Acid (Folic Acid) 1 mg PO DAILY [facility] Last Admin: 10/28/17 09:15 Dose: 1 mg Piperacillin Sod/Tazobactam Sod (Zosyn 3.375 Gm Iv Premix) 3.375 gm in 50 mls @ 100 mls/hr IVPB Q6H [facility] PRN Reason: Protocol Last Admin: 10/28/17 09:59 Dose: 100 mls/hr Metronidazole (Flagyl) 500 mg in 100 mls @ 100 mls/hr IVPB Q8H [facility] PRN Reason: Protocol Last Admin: 10/28/17 11:08 Dose: 100 mls/hr Sodium Chloride (Sodium Chloride 0.9%) 1,000 mls @ 100 mls/hr IV .Q10H [facility] Last Admin: 10/28/17 08:19 Dose: 100 mls/hr Lorazepam (Ativan) 2 mg IVP Q6H PRN PRN Reason: Symptoms of alcohol withdrawl Morphine Sulfate (Morphine) 2 mg IVP Q4H PRN PRN Reason: Pain, moderate (4-7) Last Admin: 10/28/17 09:15 Dose: 2 mg Multivitamins (Hexavitamin) 1 tab PO DAILY [facility] Last Admin: 10/28/17 09:15 Dose: 1 tab Ondansetron HCl (Zofran Inj) 4 mg IVP Q6 PRN PRN Reason: Nausea/Vomiting Last Admin: 10/28/17 12:22 Dose: 4 mg Pantoprazole Sodium (Protonix Ec Tab) 40 mg PO DAILY [facility] Last Admin: 10/28/17 09:14 Dose: 40 mg - Labs Labs: 10/28/17 06:34 10/28/17 06:34 - Constitutional Appears: Well, No Acute Distress - Head Exam Head Exam: ATRAUMATIC, NORMAL INSPECTION - Eye Exam Eye Exam: EOMI Pupil Exam: PERRL - ENT Exam ENT Exam: Mucous Membranes Moist - Neck Exam Neck Exam: Full ROM - Respiratory Exam Respiratory Exam: Clear to Ausculation Bilateral, NORMAL BREATHING PATTERN. absent: Rales, Rhonchi, Wheezes - Cardiovascular Exam Cardiovascular Exam: REGULAR RHYTHM, +S1, +S2. absent: Bradycardia, Tachycardia , Murmur - GI/Abdominal Exam GI & Abdominal Exam: Soft, Normal Bowel Sounds. absent: Firm, Guarding, Rigid, Tenderness, Organomegaly, Rebound - Extremities Exam Extremities Exam: Full ROM, Normal Capillary Refill, Normal Inspection. absent : Pedal Edema, Tenderness - Neurological Exam Neurological Exam: Alert, Awake, CN II-XII Intact, Oriented x3 Additional comments: No asterexis - Psychiatric Exam Psychiatric exam: Normal Affect, Normal Mood - Skin Skin Exam: Intact, Normal Color, Warm Assessment and Plan - Assessment and Plan (Free Text) Assessment: Please note this is a late entry. This A/P reflects the management on 10/27/17. Acute pancreatitis Admit to med/surg Febrile, WBC Etiology: most likely 2/2 alcohol Abd/Pelvis CT 10/24: Findings consistent with acute pancreatitis with surrounding peripancreatic infiltration and fluid which extends inferiorly along the left and right para renal and paracolic gutter spaces. Small amount of ascites seen within the mid lower abdomen with moderate amount of the ascites fluid present within the pelvis. Wall thickening urinary bladder likely due to incomplete distention and muscular hypertrophy however cystitis not excluded ; correlation with urinalysis. Fatty hepatic infiltration. Lipase 36355 on admission; improved on repeat ~1000 UA WNL Tylenol 650mg PO Q6H PRN fever Morphine 2mg IVP Q4H prn Zofran 4mg IVP Q6H prn NS @150mL/hr Liquid diet advanced to solid regular diet - patient tolerated well today Sepsis, Resolved No longer meets SIRS criteria Metronidazole 500mg IVP Q8H Zosyn 3.375g IVP Q6H Source: Pancreatitis ETOH abuse disorder CIWA protocol prn Ativan 2mg IVP Q6H prn Thiamine/MV/Folic Acid HTN Possibly related to alcohol withdrawal and pain We will monitor and will consider starting norvasc 5mg PO QD Prophylactic measure SCDs only Protonix 40mg IVP daily Lovenox 40mg SC daily Roni Chavez PGY-1 D/W Dr. Moy
--- NOTE | 2017-10-28 13:48 | CP.PCM.DIS ---
Provider - Provider Date of Admission: 10/24/17 17:32 Attending physician: Altaf Dickinson MD Primary care physician: PMD: none Consults: None Time Spent in preparation of Discharge (in minutes): 35 Diagnosis - Discharge Diagnosis (1) Acute pancreatitis Status: Resolved Priority: High Hospital Course - Lab Results Lab Results: Micro Results 10/24/17 13:16 Urine Urine Culture - Final No Growth (<1,000 CFU/ML) Most Recent Lab Values WBC 12.5 K/uL (4.8-10.8) H 10/28/17 06:34 RBC 3.71 Mil/uL (4.40-5.90) L 10/28/17 06:34 Hgb 12.5 g/dL (12.0-18.0) 10/28/17 06:34 Hct 35.6 % (35.0-51.0) 10/28/17 06:34 MCV 96.0 fL (80.0-94.0) H 10/28/17 06:34 MCH 33.6 pg (27.0-31.0) H 10/28/17 06:34 MCHC 35.0 g/dL (33.0-37.0) 10/28/17 06:34 RDW 12.8 % (11.5-14.5) 10/28/17 06:34 Plt Count 253 K/uL (130-400) 10/28/17 06:34 MPV 8.6 fL (7.2-11.7) 10/28/17 06:34 Neut % (Auto) 81.9 % (50.0-75.0) H 10/28/17 06:34 Lymph % (Auto) 5.2 % (20.0-40.0) L 10/28/17 06:34 Marshall % (Auto) 12.0 % (0.0-10.0) H 10/28/17 06:34 Eos % (Auto) 0.7 % (0.0-4.0) 10/28/17 06:34 Baso % (Auto) 0.2 % (0.0-2.0) 10/28/17 06:34 Neut # (Auto) 10.3 K/uL (1.8-7.0) H 10/28/17 06:34 Lymph # (Auto) 0.6 K/uL (1.0-4.3) L 10/28/17 06:34 Marshall # (Auto) 1.5 K/uL (0.0-0.8) H 10/28/17 06:34 Eos # (Auto) 0.1 K/uL (0.0-0.7) 10/28/17 06:34 Baso # (Auto) 0.0 K/uL (0.0-0.2) 10/28/17 06:34 Neutrophils % (Manual) 79 % (50-75) H 10/28/17 06:34 Band Neutrophils % 4 % (0-2) H 10/28/17 06:34 Lymphocytes % (Manual) 6 % (20-40) L 10/28/17 06:34 Monocytes % (Manual) 11 % (0-10) H 10/28/17 06:34 Nucleated RBC % 1 % (0-0) H 10/28/17 06:34 Platelet Estimate Normal (NORMAL) 10/28/17 06:34 Large Platelets Present 10/26/17 07:08 RBC Morphology Normal 10/25/17 08:58 Polychromasia Slight 10/26/17 07:08 Hypochromasia (manual) Slight 10/27/17 07:48 Poikilocytosis (manual Slight 10/27/17 07:48 Anisocytosis (manual) Slight 10/27/17 07:48 pO2 19 mm/Hg (30-55) L 10/26/17 09:08 VBG pH 7.39 (7.32-7.43) 10/26/17 09:08 VBG pCO2 49 mmHg (40-60) 10/26/17 09:08 VBG HCO3 25.9 mmol/L 10/26/17 09:08 VBG Total CO2 31.2 mmol/L (22-28) H 10/26/17 09:08 VBG O2 Sat (Calc) 39.1 % (40-65) L 10/26/17 09:08 VBG Base Excess 3.7 mmol/L (0.0-2.0) H 10/26/17 09:08 VBG Potassium 2.9 mmol/L (3.6-5.2) L 10/26/17 09:08 Sodium 130.0 mmol/l (132-148) L 10/26/17 09:08 Chloride 95.0 mmol/L (98-107) L 10/26/17 09:08 Glucose 100 mg/dl (75-110) 10/26/17 09:08 Lactate 1.7 mmol/L (0.7-2.1) 10/26/17 09:08 Sodium 131 mmol/L (132-148) L 10/28/17 06:34 Potassium 3.2 mmol/L (3.6-5.2) L 10/28/17 06:34 Chloride 94 mmol/L (98-107) L 10/28/17 06:34 Carbon Dioxide 25 mmol/L (22-30) 10/28/17 06:34 Anion Gap 15 (10-20) 10/28/17 06:34 BUN 7 mg/dL (9-20) L 10/28/17 06:34 Creatinine 0.6 mg/dL (0.8-1.5) L 10/28/17 06:34 Est GFR ( Amer) > 60 10/28/17 06:34 Est GFR (Non-Af Amer) > 60 10/28/17 06:34 Random Glucose 102 mg/dL (75-110) 10/28/17 06:34 Calcium 8.4 mg/dl (8.6-10.4) L 10/28/17 06:34 Phosphorus 3.5 mg/dL (2.5-4.5) 10/28/17 06:34 Magnesium 2.0 mg/dL (1.6-2.3) 10/28/17 06:34 Total Bilirubin 1.2 mg/dL (0.2-1.3) 10/28/17 06:34 AST 37 U/L (17-59) 10/28/17 06:34 ALT 34 U/L (21-72) 10/28/17 06:34 Alkaline Phosphatase 80 U/L (38-126) 10/28/17 06:34 Lactate Dehydrogenase 654 U/L (313-618) H 10/24/17 12:56 Total Protein 6.9 g/dL (6.3-8.3) 10/28/17 06:34 Albumin 3.8 g/dL (3.5-5.0) 10/28/17 06:34 Globulin 3.1 gm/dL (2.2-3.9) 10/28/17 06:34 Albumin/Globulin Ratio 1.2 (1.0-2.1) 10/28/17 06:34 Lipase 1058 U/L (23-300) H 10/26/17 07:08 Venous Blood Potassium 2.9 mmol/L (3.6-5.2) L 10/26/17 09:08 Urine Color Aruna (YELLOW) 10/24/17 12:56 Urine Clarity Hazy (Clear) 10/24/17 12:56 Urine pH 6.0 (5.0-8.0) 10/24/17 12:56 Ur Specific [place] 1.026 (1.003-1.030) 10/24/17 12:56 Urine Protein 2+ mg/dL (NEGATIVE) H 10/24/17 12:56 Urine Glucose (UA) Normal mg/dL (Normal) 10/24/17 12:56 Urine Ketones Trace mg/dL (NEGATIVE) 10/24/17 12:56 Urine Blood Negative (NEGATIVE) 10/24/17 12:56 Urine Nitrate Negative (NEGATIVE) 10/24/17 12:56 Urine Bilirubin Negative (NEGATIVE) 10/24/17 12:56 Urine Urobilinogen 4.0 mg/dL (0.2-1.0) 10/24/17 12:56 Ur Leukocyte Esterase Neg Karl/uL (Negative) 10/24/17 12:56 Urine WBC (Auto) 1 /hpf (0-5) 10/24/17 12:56 - Hospital Course Hospital Course: History of Present Illness: PGY1 Medicine H+P for Dr. Dickinson Patient is a 26 year old male with no significant past medical history is presenting to the hospital with a complaint of abdominal pain. The pain started last night and is described as sharp in nature. The pain is most severe in the epigastric region, radiating to his back. This is the first time he has ever had this pain. He attempted to drink some water and juice this morning but vomited soon after. He denies any blood in the vomit. He states that he drank 4 - 24oz beers yesterday after work. He usually only drinks 2 times per week. He has never experienced alcohol withdrawal symptoms and states that he does not feel like he needs to drink every day. He was treated in the emergency room but is still complaining of abdominal pain, but is no longer nauseous at this time. Denies fevers, chills, diarrhea, constipation, chest pain, shortness of breath, palpitations, headaches, vision changes, numbness, tingling or difficulty with balance. PMH: denies PSH: denies Family: unknown Social: drinks 4-24oz. beers two times per week (last drink yesterday), denies tobacco and illicit drug use. Works at a restaurant in [place]. Allergies: [facility] HOSPITAL COURSE: This patient was treated for acute pancreatitis 2/2 to alcohol abuse. Symptoms along with CT findings confirmed the diagnosis of acute pancreatitis. He was initially made NPO then transitioned to liquid diet and finally solid foods. He was given morphine for pain and zofran for nausea. He was given NS at a rate of 100ml/hr. He recovered well and his abdominal pain resolved completely. He was also treated for alcohol abuse disorder with ativan 2mg q6h prn and thiamine/mv/ folic acid. He had hypertension - it was unclear if this was his baseline or a response to withdrawal symptoms/pain. He was discharged on norvasc 5mg po qd. Also, he had a period of elevated white count, elevated bands and fevers thus he was empirically started on flagyl and zosyn. He was discharged with a script for 4 days of augmentin. Discharge Exam - Head Exam Head Exam: ATRAUMATIC, NORMAL INSPECTION - Additional Findings Additional findings: - Constitutional Appears: Well, No Acute Distress - Head Exam Head Exam: ATRAUMATIC, NORMAL INSPECTION - Eye Exam Eye Exam: EOMI Pupil Exam: PERRL - ENT Exam ENT Exam: Mucous Membranes Moist - Neck Exam Neck Exam: Full ROM - Respiratory Exam Respiratory Exam: Clear to Ausculation Bilateral, NORMAL BREATHING PATTERN. absent: Rales, Rhonchi, Wheezes - Cardiovascular Exam Cardiovascular Exam: REGULAR RHYTHM, +S1, +S2. absent: Bradycardia, Tachycardia , Murmur - GI/Abdominal Exam GI & Abdominal Exam: Soft, Normal Bowel Sounds. absent: Firm, Guarding, Rigid, Tenderness, Organomegaly, Rebound - Extremities Exam Extremities Exam: Full ROM, Normal Capillary Refill, Normal Inspection. absent : Pedal Edema, Tenderness - Neurological Exam Neurological Exam: Alert, Awake, CN II-XII Intact, Oriented x3 Additional comments: No asterexis - Psychiatric Exam Psychiatric exam: Normal Affect, Normal Mood - Skin Skin Exam: Intact, Normal Color, Warm Discharge Plan - Discharge Medications Prescriptions: amLODIPine [Norvasc] 5 mg PO DAILY #30 tab Amoxicillin/Clavulanate [Augmentin 875 MG-125 MG] 1 tab PO BID 4 Days #8 tab - Follow Up Plan Condition: STABLE Disposition: HOME/ ROUTINE Instructions: Amoxicillin and Clavulanate, Pancreatitis (DC) Additional Instructions: Patient is medically stable for discharge. Please make an appointment with our [facility] (information provided) and follow-up within 2 weeks to monitor your progress. You will be discharged with scripts for the following medications: 1. Norvasc 5mg take 1 tablet in the morning with breakfast (this is for your high blood pressure) 2. Augmentin 875mg take 1 tablet in the morning and 1 tablet in the evening for a total of 4 days (this is to cover your for an infectious process) If symptoms return please to your nearest ER. Referrals: [facility] [Provider Group] [facility] [Provider Group] [facility] [Provider Group]
== END 2017-10-28 15:11 | disposition home or self-care (01) | DRG 439 ==
LOC: C.ER 11:54 → C.9E 17:32 → C.3T 18:15
PROVIDERS: ADMIT Internal Medicine; ATTEND Internal Medicine
DX: K85.20 Alcohol induced acute pancreatitis without necrosis or infection (principal); R18.8 Other ascites; I10 Essential (primary) hypertension; F10.10 Alcohol abuse, uncomplicated; E87.5 Hyperkalemia; Z79.899 Other long term (current) drug therapy

== ENCOUNTER 2018-01-08 02:05 | Inpatient (IN) | payer MEDICAID, OTHER ==
[2018-01-08 02:05] VITALS: BMI 24.8
[2018-01-08] MEDS ORDERED: Sodium Chloride 0.9% 1,000 ML IV STA ×2 (02:25→04:20)
[2018-01-08] MEDS ORDERED: Sodium Chloride 0.9% 1,000 ML ONE ×2 (02:31→04:30)
[2018-01-08 02:44] LABS: LYMPH # 1.5 K/uL (1.0-4.3); MEAN CORPUSCULAR HEMOGLOBIN 33.3 pg (27.0-31.0); MEAN PLATELET VOLUME 8.6 fL (7.2-11.7); WHITE BLOOD COUNT 11.1 K/uL (4.8-10.8)
[2018-01-08 03:07] LABS: BASO % 0.4 % (0.0-2.0); EOS % 0.1 % (0.0-4.0); HEMOGLOBIN 16.3 g/dL (12.0-18.0); LYMPH % 13.4 % (20.0-40.0); MEAN CORPUSCULAR HGB CONC 35.4 g/dL (33.0-37.0); MONO # 0.8 K/uL (0.0-0.8); MONO % 6.8 % (0.0-10.0); NEUT # 8.8 K/uL (1.8-7.0); NEUT % 79.3 % (50.0-75.0); RBC 4.89 Mil/uL (4.40-5.90); RED CELL DISTRIBUTION WIDTH 12.7 % (11.5-14.5)
[2018-01-08 03:08] LABS: ALB/GLOB RATIO 1.8 (1.0-2.1); ALBUMIN 4.8 g/dL (3.5-5.0); ALT/SGPT 55 U/L (21-72); AST/SGOT 46 U/L (17-59); BLOOD UREA NITROGEN 10 mg/dL (9-20); CALCIUM 8.9 mg/dl (8.6-10.4); GFR NON-AFRICAN AMERICAN > 60
--- NOTE | 2018-01-08 03:30 | C.PDOC ---
History Of Present Illness 27 year old male presents to the emergency department with complaints of abdominal pain associated with nausea and vomiting. Patient states that he has been drinking heavily for the last few days. Patient states that in previous ED visits he has been diagnosed with pancreatitis and gastritis. Chief Complaint (Nursing): GI Problem History Per: Patient History/Exam Limitations: no limitations Onset/Duration Of Symptoms: Hrs Current Symptoms Are (Timing): Still Present Context: Other (alcohol) Location Of Pain/Discomfort: Epigastric Quality Of Discomfort: "Pain" Associated Symptoms: Nausea, Vomiting Past Medical History Reviewed: Historical Data, Nursing Documentation, Vital Signs Vital Signs: Last Vital Signs Temp 98.3 F 01/08/18 02:15 Pulse 100 H 01/08/18 05:45 Resp 20 01/08/18 05:45 BP 139/100 H 01/08/18 05:45 Pulse Ox 98 01/08/18 06:28 - Medical History PMH: Gastritis, Pancreatitis Denies: Chronic Kidney Disease Surgical History: No Surg Hx Family History: States: No Known Family Hx - Social History Hx Alcohol Use: Yes Hx Substance Use: No - Immunization History Hx Tetanus Toxoid Vaccination: No Hx Influenza Vaccination: No Hx Pneumococcal Vaccination: No Review Of Systems Except As Marked, All Systems Reviewed And Found Negative. Gastrointestinal: Positive for: Nausea, Vomiting, Abdominal Pain Physical Exam - Physical Exam Appears: Non-toxic, No Acute Distress, Other (uncomfortable) Skin: Warm, Dry Head: Atraumatic, Normacephalic Eye(s): bilateral: Normal Inspection Neck: Normal ROM Chest: Symmetrical, No Tenderness Cardiovascular: Rhythm Regular, No Murmur Respiratory: Normal Breath Sounds, No Rales, No Rhonchi, No Wheezing Gastrointestinal/Abdominal: Soft, Tenderness (epigastric), Guarding, No Rebound Extremity: Normal ROM, No Pedal Edema Neurological/Psych: Oriented x3, Normal Speech, Normal Cognition, Normal Motor, Normal Sensation ED Course And Treatment - Laboratory Results Result Diagrams: 01/08/18 02:40 01/08/18 02:40 O2 Sat by Pulse Oximetry: 98 (RA) Pulse Ox Interpretation: Normal - CT Scan/US CT Abdomen Other Rad Studies (CT/US): Read By Radiologist, Radiology Report Reviewed CT/US Interpretation: EXAM: CT Abdomen and Pelvis With Intravenous Contrast. EXAM DATE/TIME: 01/08/2018 4:18 AM. CLINICAL HISTORY: 27 years old, male; Pain ; Abdominal pain; Epigastric; Additional info: Pancreatitis. TECHNIQUE: Axial computed tomography images of the abdomen and pelvis with intravenous contrast. All CT scans at this facility use at least one of these dose optimization techniques: automated. exposure control; mA and/or kV adjustment per patient size (includes targeted exams where dose is. matched to clinical indication); or iterative reconstruction. Coronal and sagittal reformatted images were created and reviewed. COMPARISON: No relevant prior studies available. FINDINGS: Lower thorax: Small hiatal hernia. ABDOMEN: Liver: Fatty liver. Gallbladder and bile ducts: Normal. No calcified stones. No ductal dilation. Pancreas: See Retroperitoneal Space Finding. Spleen: Normal. No splenomegaly. Adrenals: Normal. No mass. Kidneys and ureters: Incompletely characterized right renal density. No hydronephrosis. Stomach and bowel: Normal. No obstruction. No mucosal thickening. Appendix: No evidence of appendicitis. Retroperitoneal space: There is fluid stranding identified in the retroperitoneum centered around. the pancreas, consistent with acute pancreatitis. Pancreas enhances without signs of necrosis. PELVIS: Bladder: Unremarkable as visualized. Reproductive: Unremarkable as visualized. ABDOMEN and PELVIS: Intraperitoneal space: Small volume of free fluid in the pelvis. Bones/joints: No acute fracture. No dislocation. Soft tissues: Unremarkable. Vasculature: Normal. No abdominal aortic aneurysm. Lymph nodes: Normal. No enlarged lymph nodes. IMPRESSION: There is fluid stranding identified in the retroperitoneum centered around the pancreas, consistent. with acute pancreatitis. Pancreas enhances without signs of necrosis. Progress Note: Plan: Alcohol Serum. Ammonia. CMP. Lipase. CBC. Protonix 40mg IVP. NaCl IV Fluids. Zofran 4mg IVP. Urinalysis - Physician Consult Information Physician Contacted: Basilio Adame Outcome Of Conversation: Accepted to reg floor for an admission for IVF hydration Disposition - Disposition Disposition: HOSPITALIZED Disposition Time: 06:37 Condition: FAIR Forms: [employer] ([place]) - Clinical Impression Clinical Impression: Acute pancreatitis - PA / [employer] / Resident Statement MD/DO has reviewed & agrees with the documentation as recorded. - Scribe Statement The provider has reviewed the documentation as recorded by the Scribe (Jason Gómez) All medical record entries made by the Scribe were at my direction and personally dictated by me. I have reviewed the chart and agree that the record accurately reflects my personal performance of the history, physical exam, medical decision making, and the department course for this patient. I have also personally directed, reviewed, and agree with the discharge instructions and disposition. Decision To Admit - Pt Status Changed To: Hospital Disposition Of: Inpatient - Admit Certification Admit to Inpatient:: After my assessment, the patient will require hospitalization for at least two midnights. This is because of the severity of symptoms shown, intensity of services needed, and/or the medical risk in this patient being treated as an outpatient. - InPatient: Physician Admission Certification:: Patient with acute pancreatitis will need more then 2 days of an admission. - . Bed Request Type: Regular Admitting Physician: Basilio Adame Patient Diagnosis: Acute pancreatitis
[2018-01-08 03:49] LABS: LIPASE 3171 U/L (23-300)
[2018-01-08] MEDS ORDERED: Morphine 4 MG/ML VIAL ONE (04:30)
[2018-01-08] MEDS ORDERED: Iodixanol 320 MG/ML 100 ML BOTTLE IV ONE (05:17)
[2018-01-08 06:28] LABS: SQUAMOUS EPITHIAL < 1 /hpf (0-5); URINE BACTERIA RARE (<OCC); URINE BILIRUBIN NEGATIVE (NEGATIVE); URINE BLOOD NEGATIVE (NEGATIVE); URINE CLARITY Clear (Clear); URINE COLOR Straw (YELLOW); URINE GLUCOSE (UA) NORMAL (Normal); URINE LEUKOCYTE ESTERASE NEG Leu/uL (Negative); URINE PROTEIN NEGATIVE (NEGATIVE); URINE UROBILINOGEN NORMAL mg/dL (0.2-1.0)
[2018-01-08 06:56] LABS: BARBITURATES, UR NEGATIVE (NEGATIVE); BENZODIAZEPINES, UR NEGATIVE (NEGATIVE); PHENCYCLIDINE, UR NEGATIVE (NEGATIVE)
[2018-01-08 07:35] LABS: OPIATES, UR POSITIVE (NEGATIVE)
--- NOTE | 2018-01-08 07:52 | CT ---
Date of service: 01/08/2018 PROCEDURE: CT Abdomen and Pelvis with intravenous contrast HISTORY: pancreatitis COMPARISON: 10/24/2017 TECHNIQUE: Multiple contiguous axial images were performed through the abdomen and pelvis with the use of intravenous contrast. Subsequently, sagittal and coronal reformatted images were obtained. Radiation dose: Total exam DLP = 272 mGy-cm. This CT exam was performed using one or more of the following dose reduction techniques: Automated exposure control, adjustment of the mA and/or kV according to patient size, and/or use of iterative reconstruction technique. FINDINGS: LOWER THORAX: Small hiatal hernia. LIVER: Fatty infiltration of the liver. GALLBLADDER AND BILE DUCTS: Unremarkable. PANCREAS: Fluid stranding identified in the retroperitoneum centered around the pancreas consistent with acute pancreatitis. At the level of the posterior body/tail of the pancreas best seen on series 3, image 48 there is a somewhat loosely organized loculated fluid collection measuring 4.1 x 1.4 centimeters. This may represent a developing phlegmonous fluid collection. Continued interval follow-up is recommended if clinically indicated. SPLEEN: Unremarkable. ADRENALS: Unremarkable. No mass. KIDNEYS AND URETERS: 1.7 centimeter low-attenuation lesion seen in the upper pole of the right kidney demonstrating a Hounsfield unit attenuation of 24, indeterminate. Mild left perinephric fat stranding and fluid. VASCULATURE: Unremarkable. No aortic aneurysm. BOWEL: Unremarkable. No obstruction. No gross mural thickening. APPENDIX: No findings to suggest acute appendicitis. PERITONEUM: Small to moderate volume of free fluid in the pelvis. LYMPH NODES: Unremarkable. No enlarged lymph nodes. BLADDER: Mildly thick-walled urinary bladder. REPRODUCTIVE: Unremarkable. BONES: No acute fracture. OTHER FINDINGS: None. IMPRESSION: Fluid stranding identified in the retroperitoneum centered around the pancreas consistent with acute pancreatitis. At the level of the posterior body/tail of the pancreas best seen on series 3, image 48 there is a somewhat loosely organized loculated fluid collection measuring 4.1 x 1.4 centimeters. This may represent a developing phlegmonous fluid collection. Continued interval follow-up is recommended if clinically indicated. Small to moderate volume of free fluid in the pelvis. 1.7 centimeter low-attenuation lesion seen in the upper pole of the right kidney demonstrating a Hounsfield unit attenuation of 24, indeterminate. This may be better evaluated with multiphasic CT or MR if clinically indicated. Mild left perinephric fat stranding and fluid. Additional findings as above. These findings were preliminarily reported at 6:04 a.m. on 01/08/[address] David Julian from [facility].
--- NOTE | 2018-01-08 08:24 | CP.PCM.CON ---
<LollyrajivGretchenerum - Last Filed: 01/08/18 12:30> History of Present Illness - History of Present Illness History of Present Illness: PGY-4 GI Fellow Consult Note Mr. Canales is a 27 yo Hisp Male with h/o acute pancreatitis due to EtOH presenting with abd pain. He states over the last few days he has had worsening , non-radiating, burning, epigastric pain. State he also felt nauseous but did not throw up. States symptoms are worse when he takes a deep breath, better with morphine given to him in the hospital. States he drank 10+ beers on Friday for a birthday democrat. He denied any fevers, chills, CP, SOB, melena or hematochezia. States last BM was 2 days prior, formed brown. 12 point ROS negative other than stated above MHx: 1x episode of EtOH Pancreatitis SurgHx: None, no endos Meds: None FamHx: Denied Gi probs SocHx: Denied tob/illicits, + 10 beers recently All: NKDA Past Patient History - Infectious Disease Hx of Infectious Diseases: None - Past Medical History & Family History Past Medical History?: Yes - Past Social History Smoking Status: Unknown If Ever Smoked - CARDIAC Hx Cardiac Disorders: No - PULMONARY Hx Respiratory Disorders: No - NEUROLOGICAL Hx Neurological Disorder: No - HEENT Hx HEENT Problems: No - RENAL Hx Chronic Kidney Disease: No - ENDOCRINE/METABOLIC Hx Endocrine Disorders: No - HEMATOLOGICAL/ONCOLOGICAL Hx Blood Disorders: No - INTEGUMENTARY Hx Dermatological Problems: No - MUSCULOSKELETAL/RHEUMATOLOGICAL Hx Falls: No - GASTROINTESTINAL Hx Gastritis: Yes Hx Pancreatitis: Yes - GENITOURINARY/GYNECOLOGICAL Hx Genitourinary Disorders: No - PSYCHIATRIC Hx Substance Use: No - SURGICAL HISTORY Hx Surgeries: No - ANESTHESIA Hx Anesthesia: Yes Hx Anesthesia Reactions: No Meds Allergies/Adverse Reactions: Allergies Allergy/AdvReac Type Severity Reaction Status Date / Time No Known Allergies Allergy Verified 10/24/17 11:57 - Medications Medications: Current Medications Sodium Chloride (Sodium Chloride 0.9%) 1,000 mls @ 125 mls/hr IV .Q8H STA Stop: 01/08/18 12:19 Last Admin: 01/08/18 04:34 Dose: 125 mls/hr Lactated Ringer's (Lactated Ringer's) 1,000 mls @ 200 mls/hr IV .Q5H ALETA Multivitamins/Vitamin C 10 ml/Thiamine HCl 100 mg/ Folic Acid 1 mg/ Sodium Chloride 1,011.2 mls @ 50 mls/hr IV .[id number] ONE Stop: 01/09/18 06:13 Lorazepam (Ativan) 1 mg IVP Q6H PRN PRN Reason: Seizure activity Morphine Sulfate (Morphine) 2 mg IVP Q4 PRN PRN Reason: Pain, severe (8-10) Morphine Sulfate (Morphine) 1 mg IVP Q4 PRN PRN Reason: Pain, moderate (4-7) Physical Exam - Constitutional Appears: Well, No Acute Distress Additional comments: uncomfortable - Head Exam Head Exam: ATRAUMATIC, NORMAL INSPECTION - Eye Exam Eye Exam: EOMI. absent: Conjunctival injection, Scleral icterus - ENT Exam ENT Exam: Mucous Membranes Dry. absent: Mucous Membranes Moist, Normal External Ear Exam - Neck Exam Neck exam: Positive for: Full Rom, Normal Inspection - Respiratory Exam Respiratory Exam: Clear to Auscultation Bilateral, NORMAL BREATHING PATTERN. absent: Accessory Muscle Use, Wheezes - Cardiovascular Exam Cardiovascular Exam: REGULAR RHYTHM, RRR - GI/Abdominal Exam GI & Abdominal Exam: Normal Bowel Sounds, Soft, Tenderness (ttp in epigastrum w/ o guarding). absent: Bruit, Diminished Bowel Sounds, Distended, Firm, Guarding , Hernia, Hyperactive Bowel Sounds, Hypoactive Bowel Sounds, Mass, Organomegaly , Pulsatile Mass, Rebound, Rigid - Rectal Exam Rectal Exam: Deferred - Extremities Exam Extremities exam: Positive for: normal inspection. Negative for: pedal edema - Neurological Exam Neurological exam: Alert, CN II-XII Intact - Psychiatric Exam Psychiatric exam: Normal Affect, Normal Mood - Skin Skin Exam: Dry, Normal Color, Warm Results - Vital Signs Recent Vital Signs: Last Vital Signs Temp 98.3 F 01/08/18 02:15 Pulse 99 H 01/08/18 08:07 Resp 18 01/08/18 08:07 BP 157/107 H 01/08/18 08:07 Pulse Ox 98 01/08/18 08:07 - Labs Result Diagrams: 01/08/18 02:40 01/08/18 02:40 Labs: Laboratory Results - last 24 hr 01/08/18 01/08/18 01/08/18 02:40 02:40 02:40 WBC 11.1 H RBC 4.89 Hgb 16.3 D Hct 45.9 MCV 94.0 D MCH 33.3 H MCHC 35.4 RDW 12.7 Plt Count 236 MPV 8.6 Neut % (Auto) 79.3 H Lymph % (Auto) 13.4 L Sumner % (Auto) 6.8 Eos % (Auto) 0.1 Baso % (Auto) 0.4 Neut # (Auto) 8.8 H Lymph # (Auto) 1.5 Sumner # (Auto) 0.8 Eos # (Auto) 0.0 Baso # (Auto) 0.0 Sodium 136 Potassium 3.7 Chloride 92 L Carbon Dioxide 23 Anion Gap 25 H BUN 10 Creatinine 0.6 L Est GFR ( Amer) > 60 Est GFR (Non-Af Amer) > 60 Random Glucose 93 Calcium 8.9 Total Bilirubin 0.7 AST 46 ALT 55 Alkaline Phosphatase 62 Ammonia 10 Total Protein 7.5 Albumin 4.8 Globulin 2.7 Albumin/Globulin Ratio 1.8 Lipase 3171 H Urine Color Urine Clarity Urine pH Ur Specific Cary Urine Protein Urine Glucose (UA) Urine Ketones Urine Blood Urine Nitrate Urine Bilirubin Urine Urobilinogen Ur Leukocyte Esterase Ur Squamous Epith Cells Urine Bacteria Urine Opiates Screen Urine Methadone Screen Ur Barbiturates Screen Ur Phencyclidine Scrn Ur Amphetamines Screen U Benzodiazepines Scrn U Oth Cocaine Metabols U Cannabinoids Screen Alcohol, Quantitative 91 H 01/08/18 01/08/18 06:23 06:32 WBC RBC Hgb Hct MCV MCH MCHC RDW Plt Count MPV Neut % (Auto) Lymph % (Auto) Sumner % (Auto) Eos % (Auto) Baso % (Auto) Neut # (Auto) Lymph # (Auto) Sumner # (Auto) Eos # (Auto) Baso # (Auto) Sodium Potassium Chloride Carbon Dioxide Anion Gap BUN Creatinine Est GFR ( Amer) Est GFR (Non-Af Amer) Random Glucose Calcium Total Bilirubin AST ALT Alkaline Phosphatase Ammonia Total Protein Albumin Globulin Albumin/Globulin Ratio Lipase Urine Color Straw Urine Clarity Clear Urine pH 6.0 Ur Specific Cary 1.005 Urine Protein Negative Urine Glucose (UA) Normal Urine Ketones Negative Urine Blood Negative Urine Nitrate Negative Urine Bilirubin Negative Urine Urobilinogen Normal Ur Leukocyte Esterase Neg Ur Squamous Epith Cells < 1 Urine Bacteria Rare Urine Opiates Screen Positive H Urine Methadone Screen Negative Ur Barbiturates Screen Negative Ur Phencyclidine Scrn Negative Ur Amphetamines Screen Negative U Benzodiazepines Scrn Negative U Oth Cocaine Metabols Negative U Cannabinoids Screen Negative Alcohol, Quantitative Assessment & Plan - Assessment and Plan (Free Text) Assessment: 27 yo male with h/o acute pancreatitis presenting with abdominal pain, N/V. # Acute Pancreatitis: 3/3 criteria with complication of fabian-pancreatic fluid collection. No sign of necrosis or systemic infection upon admission. Trigger related to EtOH, no stones on CT and labs not suggestive. Plan: - NPO - IVF with LR - Pain control - Counseled on EtOH cessation - Daily CBCs, monitor for signs of infection - Hold off antibiotics for now Pt discussed with Dr. Gonzales. Please see attestation for further recs/changes. <Cassandra Gonzales - Last Filed: 01/08/18 19:47> Meds - Medications Medications: Current Medications Lactated Ringer's (Lactated Ringer's) 1,000 mls @ 200 mls/hr IV .Q5H ALETA Last Admin: 01/08/18 13:55 Dose: Not Given Multivitamins/Vitamin C 10 ml/Thiamine HCl 100 mg/ Folic Acid 1 mg/ Sodium Chloride 1,011.2 mls @ 50 mls/hr IV .[id number] ONE Stop: 01/09/18 06:13 Last Admin: 01/08/18 10:58 Dose: 50 mls/hr Lorazepam (Ativan) 1 mg IVP Q6H PRN PRN Reason: Seizure activity Metoprolol Tartrate (Lopressor) 5 mg IVP Q6H PRN PRN Reason: Systolic Blood Pressure Morphine Sulfate (Morphine) 2 mg IVP Q4 PRN PRN Reason: Pain, moderate (4-7) Last Admin: 01/08/18 15:59 Dose: 2 mg Morphine Sulfate (Morphine) 4 mg IVP Q4 PRN PRN Reason: Pain, severe (8-10) Ondansetron HCl (Zofran Inj) 4 mg IVP Q6H PRN PRN Reason: Nausea/Vomiting Results - Vital Signs Recent Vital Signs: Last Vital Signs Temp 98.8 F 01/08/18 15:54 Pulse 80 01/08/18 15:54 Resp 20 01/08/18 15:54 BP 146/97 H 01/08/18 15:54 Pulse Ox 99 01/08/18 15:54 - Labs Result Diagrams: 01/08/18 02:40 01/08/18 02:40 Labs: Laboratory Results - last 24 hr 01/08/18 01/08/18 01/08/18 02:40 02:40 02:40 WBC 11.1 H RBC 4.89 Hgb 16.3 D Hct 45.9 MCV 94.0 D MCH 33.3 H MCHC 35.4 RDW 12.7 Plt Count 236 MPV 8.6 Neut % (Auto) 79.3 H Lymph % (Auto) 13.4 L Sumner % (Auto) 6.8 Eos % (Auto) 0.1 Baso % (Auto) 0.4 Neut # (Auto) 8.8 H Lymph # (Auto) 1.5 Sumner # (Auto) 0.8 Eos # (Auto) 0.0 Baso # (Auto) 0.0 PT INR Sodium 136 Potassium 3.7 Chloride 92 L Carbon Dioxide 23 Anion Gap 25 H BUN 10 Creatinine 0.6 L Est GFR ( Amer) > 60 Est GFR (Non-Af Amer) > 60 Random Glucose 93 Calcium 8.9 Total Bilirubin 0.7 AST 46 ALT 55 Alkaline Phosphatase 62 Ammonia 10 Lactate Dehydrogenase Total Protein 7.5 Albumin 4.8 Globulin 2.7 Albumin/Globulin Ratio 1.8 Triglycerides Cholesterol LDL Cholesterol Direct HDL Cholesterol Lipase 3171 H Urine Color Urine Clarity Urine pH Ur Specific [place] Urine Protein Urine Glucose (UA) Urine Ketones Urine Blood Urine Nitrate Urine Bilirubin Urine Urobilinogen Ur Leukocyte Esterase Ur Squamous Epith Cells Urine Bacteria Urine Opiates Screen Urine Methadone Screen Ur Barbiturates Screen Ur Phencyclidine Scrn Ur Amphetamines Screen U Benzodiazepines Scrn U Oth Cocaine Metabols U Cannabinoids Screen Alcohol, Quantitative 91 H HIV 1&2 Antibody Screen 01/08/18 01/08/18 01/08/18 06:23 06:32 11:49 WBC RBC Hgb Hct MCV MCH MCHC RDW Plt Count MPV Neut % (Auto) Lymph % (Auto) Sumner % (Auto) Eos % (Auto) Baso % (Auto) Neut # (Auto) Lymph # (Auto) Sumner # (Auto) Eos # (Auto) Baso # (Auto) PT 12.0 INR 1.1 Sodium Potassium Chloride Carbon Dioxide Anion Gap BUN Creatinine Est GFR ( Amer) Est GFR (Non-Af Amer) Random Glucose Calcium Total Bilirubin AST ALT Alkaline Phosphatase Ammonia Lactate Dehydrogenase Total Protein Albumin Globulin Albumin/Globulin Ratio Triglycerides Cholesterol LDL Cholesterol Direct HDL Cholesterol Lipase Urine Color Straw Urine Clarity Clear Urine pH 6.0 Ur Specific [place] 1.005 Urine Protein Negative Urine Glucose (UA) Normal Urine Ketones Negative Urine Blood Negative Urine Nitrate Negative Urine Bilirubin Negative Urine Urobilinogen Normal Ur Leukocyte Esterase Neg Ur Squamous Epith Cells < 1 Urine Bacteria Rare Urine Opiates Screen Positive H Urine Methadone Screen Negative Ur Barbiturates Screen Negative Ur Phencyclidine Scrn Negative Ur Amphetamines Screen Negative U Benzodiazepines Scrn Negative U Oth Cocaine Metabols Negative U Cannabinoids Screen Negative Alcohol, Quantitative HIV 1&2 Antibody Screen 01/08/18 01/08/18 01/08/18 11:49 11:49 13:10 WBC RBC Hgb Hct MCV MCH MCHC RDW Plt Count MPV Neut % (Auto) Lymph % (Auto) Sumner % (Auto) Eos % (Auto) Baso % (Auto) Neut # (Auto) Lymph # (Auto) Sumner # (Auto) Eos # (Auto) Baso # (Auto) PT INR Sodium Potassium Chloride Carbon Dioxide Anion Gap BUN Creatinine Est GFR ( Amer) Est GFR (Non-Af Amer) Random Glucose Calcium Total Bilirubin AST ALT Alkaline Phosphatase Ammonia Lactate Dehydrogenase 497 Total Protein Albumin Globulin Albumin/Globulin Ratio Triglycerides 305 H Cholesterol 123 LDL Cholesterol Direct 52 HDL Cholesterol 34 Lipase Urine Color Straw Urine Clarity Clear Urine pH 6.0 Ur Specific [place] 1.013 Urine Protein Negative Urine Glucose (UA) Normal Urine Ketones Negative Urine Blood Negative Urine Nitrate Negative Urine Bilirubin Negative Urine Urobilinogen Normal Ur Leukocyte Esterase Neg Ur Squamous Epith Cells Urine Bacteria Urine Opiates Screen Urine Methadone Screen Ur Barbiturates Screen Ur Phencyclidine Scrn Ur Amphetamines Screen U Benzodiazepines Scrn U Oth Cocaine Metabols U Cannabinoids Screen Alcohol, Quantitative HIV 1&2 Antibody Screen Negative Attending/Attestation - Attestation I have personally seen and examined this patient.: Yes I have fully participated in the care of the patient.: Yes I have reviewed all pertinent clinical information: Yes Notes (Text): 01/08/18 19:46 This is a 27 yo male with h/o acute pancreatitis presenting with abdominal pain , N/V in setting of alcohol pancreatitis with complication of fabian-pancreatic fluid collection. No sign of necrosis or systemic infection upon admission. Trigger related to EtOH, no stones on CT and labs not suggestive. NPO and supportive care with IVF at 200 cc/hr
[2018-01-08] MEDS ORDERED: Multivitamin (MVI) 10 ML, Thiamine 100 MG, Folic Acid 1 MG in Sodium Chloride 0.9% 1,00... IV ONE (10:00)
--- NOTE | 2018-01-08 11:08 | US ---
Date of service: 01/08/2018 HISTORY: possible pancreatitis, r/o gallstone as cause COMPARISON: CT scan of the abdomen and pelvis performed earlier the same day. TECHNIQUE: Sonographic evaluation of the abdomen. FINDINGS: LIVER: Measures 15.9 cm. Increased echogenicity of the liver parenchyma. No mass. No intrahepatic bile duct dilatation. GALLBLADDER: Unremarkable. No gallstones. COMMON BILE DUCT: Measures 3 mm. No stones. No dilatation. PANCREAS: Limited evaluation due to overlying bowel gas. RIGHT KIDNEY: Measures 10.8 x 4.5 x 5.4cm. Upper pole cyst measuring 1.6 x 1.5 x 1.2 cm. Normal echogenicity. No calculus, mass, or hydronephrosis. LEFT KIDNEY: Measures 11.9 x 5.2 x 6.1cm. Normal echogenicity. No calculus, mass, or hydronephrosis. SPLEEN: Normal in size and contour. No mass. AORTA: No aneurysmal dilatation. IVC: Unremarkable. OTHER FINDINGS: None. IMPRESSION: Hepatic steatosis. Right upper pole cyst. Otherwise, unremarkable abdominal ultrasound.
[2018-01-08] MEDS ORDERED: Metoprolol 1 mg/ml Inj IVP ONE (11:10)
[2018-01-08 12:06] LABS: INR 1.1
[2018-01-08 12:13] LABS: HDL CHOLESTEROL 34 mg/dL (30-70)
[2018-01-08 12:23] LABS: LDL CHOLESTEROL 52 mg/dL (0-129)
[2018-01-08] MEDS: Lactated Ringer's 1,000 ML IV SCH ×4 (12:54→22:46)
[2018-01-08] MEDS ORDERED: Metoprolol 1 mg/ml Inj IVP PRN (12:54)
[2018-01-08 13:33] LABS: URINE BILIRUBIN NEGATIVE (NEGATIVE); URINE BLOOD NEGATIVE (NEGATIVE); URINE CLARITY Clear (Clear); URINE COLOR Straw (YELLOW); URINE GLUCOSE (UA) NORMAL (Normal); URINE LEUKOCYTE ESTERASE NEG Leu/uL (Negative); URINE PROTEIN NEGATIVE (NEGATIVE); URINE UROBILINOGEN NORMAL mg/dL (0.2-1.0)
--- NOTE | 2018-01-08 13:53 | RAD ---
Date of service: 01/08/2018 HISTORY: epigastric pain raiditing up COMPARISON: No prior. FINDINGS: LUNGS: No active pulmonary disease. PLEURA: No significant pleural effusion identified, no pneumothorax apparent. CARDIOVASCULAR: Normal. OSSEOUS STRUCTURES: No significant abnormalities. VISUALIZED UPPER ABDOMEN: Normal. OTHER FINDINGS: None. IMPRESSION: No active disease.
--- NOTE | 2018-01-08 14:19 | CP.PCM.HP ---
<Cristhian Randle - Last Filed: 01/08/18 15:32> History of Present Illness - History of Present Illness History of Present Illness: PGY 1 History & Physical Note for Hospitalist Dr. Yeager. 27 year old male with PMHx of acute pancreatitis & ?HTN presented to ED for 1 day history of sharp stabbing 10/10 epigastric abdominal pain that radiated up into his chest associated with nausea, non-bloody vomiting (too many episodes to count), dizziness, and subjective fevers. He took one Tylenol 325 mg for the symptoms without relief. He notes that prior to onset of pain, he had been drinking 12 24 oz beers daily for 1 week celebrating his birthday. He states his current symptoms feel similar to the pancreatitis he had 2 months ago, when he was admitted to [facility]. At time of admission patient notes his pain is now an 8/10, after receiving pain medication in the ED, and he has not vomited since coming to the ED. He denies recent travel, shortness of breath, numbness or tingling in his extremities, changes in his vision or hearing, headache, diaphoresis, diarrhea, constipation, hematuria, dysuria or sick contacts. Patient states his last drink was the day before yesterday PMD: None PMH: Acute pancreatitis, ?HTN Medications: Denies PSH: Denies Allergies: None Family History: Dad - DM (66 yo); Mom - healthy (55 yo) Social History: ETOH - drinks heavily intermittently; Tobacco - denies; Drugs - denies Code status: Full Code Present on Admission - Present on Admission Any Indicators Present on Admission: No Review of Systems - Constitutional Constitutional: Chills, Fever. absent: Headache - EENT Eyes: absent: Blurred Vision, Change in Vision Ears: absent: Decreased Hearing, Ear Discharge - Cardiovascular Cardiovascular: absent: Chest Pain, Dyspnea - Respiratory Respiratory: absent: Cough, Dyspnea, Snoring - Gastrointestinal Gastrointestinal: Abdominal Pain, Nausea, Vomiting. absent: Diarrhea - Genitourinary Genitourinary: absent: Change in Urinary Stream, Hematuria, Pyuria - Musculoskeletal Musculoskeletal: absent: Arthralgias, Back Pain, Muscle Weakness - Neurological Neurological: absent: Abnormal Hearing, Abnormal Speech, Behavioral Changes, Frequent Falls - Endocrine Endocrine: absent: Change in Body Appearance - Hematologic/Lymphatic Hematologic: absent: Easy Bleeding, Easy Bruising Past Patient History - Infectious Disease Hx of Infectious Diseases: None - Past Medical History & Family History Past Medical History?: Yes - Past Social History Smoking Status: Unknown If Ever Smoked - CARDIAC Hx Cardiac Disorders: No - PULMONARY Hx Respiratory Disorders: No - NEUROLOGICAL Hx Neurological Disorder: No - HEENT Hx HEENT Problems: No - RENAL Hx Chronic Kidney Disease: No - ENDOCRINE/METABOLIC Hx Endocrine Disorders: No - HEMATOLOGICAL/ONCOLOGICAL Hx Blood Disorders: No - INTEGUMENTARY Hx Dermatological Problems: No - MUSCULOSKELETAL/RHEUMATOLOGICAL Hx Falls: No - GASTROINTESTINAL Hx Gastritis: Yes Hx Pancreatitis: Yes - GENITOURINARY/GYNECOLOGICAL Hx Genitourinary Disorders: No - PSYCHIATRIC Hx Substance Use: No - SURGICAL HISTORY Hx Surgeries: No - ANESTHESIA Hx Anesthesia: Yes Hx Anesthesia Reactions: No Meds Allergies/Adverse Reactions: Allergies Allergy/AdvReac Type Severity Reaction Status Date / Time No Known Allergies Allergy Verified 10/24/17 11:57 Physical Exam - Constitutional Appears: Non-toxic, No Acute Distress - Head Exam Head Exam: ATRAUMATIC, NORMAL INSPECTION, NORMOCEPHALIC - Eye Exam Eye Exam: EOMI, Normal appearance Pupil Exam: NORMAL ACCOMODATION - ENT Exam ENT Exam: Mucous Membranes Dry, TM's Normal Bilaterally - Neck Exam Neck exam: Positive for: Full Rom - Respiratory Exam Respiratory Exam: Clear to Auscultation Bilateral, NORMAL BREATHING PATTERN. absent: Chest Wall Tenderness, Rales, Rhonchi, Wheezes - Cardiovascular Exam Cardiovascular Exam: Tachycardia, REGULAR RHYTHM, +S1, +S2. absent: Irregular Rhythm, JVD, Systolic Murmur - GI/Abdominal Exam GI & Abdominal Exam: Normal Bowel Sounds, Soft. absent: Distended Additional comments: tenderness epigastric region, neg chen, neg lepe faria sign, neg shavon sign - Extremities Exam Extremities exam: Positive for: full ROM, normal inspection, pedal pulses present. Negative for: calf tenderness, pedal edema, tenderness - Back Exam Back exam: NORMAL INSPECTION. absent: CVA tenderness (L), CVA tenderness (R) - Neurological Exam Neurological exam: Alert, CN II-XII Intact, Oriented x3 - Psychiatric Exam Psychiatric exam: Normal Affect, Normal Mood - Skin Skin Exam: Dry, Intact, Normal Color, Warm Results - Vital Signs Recent Vital Signs: Last Vital Signs Temp 97.9 F 01/08/18 09:00 Pulse 61 01/08/18 12:59 Resp 20 01/08/18 09:00 BP 149/104 H 01/08/18 12:59 Pulse Ox 98 01/08/18 09:00 - Labs Result Diagrams: 01/08/18 02:40 01/08/18 02:40 Labs: Laboratory Results - last 24 hr 01/08/18 01/08/18 01/08/18 02:40 02:40 02:40 WBC 11.1 H RBC 4.89 Hgb 16.3 D Hct 45.9 MCV 94.0 D MCH 33.3 H MCHC 35.4 RDW 12.7 Plt Count 236 MPV 8.6 Neut % (Auto) 79.3 H Lymph % (Auto) 13.4 L [place] % (Auto) 6.8 Eos % (Auto) 0.1 Baso % (Auto) 0.4 Neut # (Auto) 8.8 H Lymph # (Auto) 1.5 [place] # (Auto) 0.8 Eos # (Auto) 0.0 Baso # (Auto) 0.0 PT INR Sodium 136 Potassium 3.7 Chloride 92 L Carbon Dioxide 23 Anion Gap 25 H BUN 10 Creatinine 0.6 L Est GFR ( Amer) > 60 Est GFR (Non-Af Amer) > 60 Random Glucose 93 Calcium 8.9 Total Bilirubin 0.7 AST 46 ALT 55 Alkaline Phosphatase 62 Ammonia 10 Lactate Dehydrogenase Total Protein 7.5 Albumin 4.8 Globulin 2.7 Albumin/Globulin Ratio 1.8 Triglycerides Cholesterol LDL Cholesterol Direct HDL Cholesterol Lipase 3171 H Urine Color Urine Clarity Urine pH Ur Specific [address] Urine Protein Urine Glucose (UA) Urine Ketones Urine Blood Urine Nitrate Urine Bilirubin Urine Urobilinogen Ur Leukocyte Esterase Ur Squamous Epith Cells Urine Bacteria Urine Opiates Screen Urine Methadone Screen Ur Barbiturates Screen Ur Phencyclidine Scrn Ur Amphetamines Screen U Benzodiazepines Scrn U Oth Cocaine Metabols U Cannabinoids Screen Alcohol, Quantitative 91 H HIV 1&2 Antibody Screen 01/08/18 01/08/18 01/08/18 06:23 06:32 11:49 WBC RBC Hgb Hct MCV MCH MCHC RDW Plt Count MPV Neut % (Auto) Lymph % (Auto) [place] % (Auto) Eos % (Auto) Baso % (Auto) Neut # (Auto) Lymph # (Auto) [place] # (Auto) Eos # (Auto) Baso # (Auto) PT 12.0 INR 1.1 Sodium Potassium Chloride Carbon Dioxide Anion Gap BUN Creatinine Est GFR ( Amer) Est GFR (Non-Af Amer) Random Glucose Calcium Total Bilirubin AST ALT Alkaline Phosphatase Ammonia Lactate Dehydrogenase Total Protein Albumin Globulin Albumin/Globulin Ratio Triglycerides Cholesterol LDL Cholesterol Direct HDL Cholesterol Lipase Urine Color Straw Urine Clarity Clear Urine pH 6.[address] 1.005 Urine Protein Negative Urine Glucose (UA) Normal Urine Ketones Negative Urine Blood Negative Urine Nitrate Negative Urine Bilirubin Negative Urine Urobilinogen Normal Ur Leukocyte Esterase Neg Ur Squamous Epith Cells < 1 Urine Bacteria Rare Urine Opiates Screen Positive H Urine Methadone Screen Negative Ur Barbiturates Screen Negative Ur Phencyclidine Scrn Negative Ur Amphetamines Screen Negative U Benzodiazepines Scrn Negative U Oth Cocaine Metabols Negative U Cannabinoids Screen Negative Alcohol, Quantitative HIV 1&2 Antibody Screen 01/08/18 01/08/18 01/08/18 11:49 11:49 13:10 WBC RBC Hgb Hct MCV MCH MCHC RDW Plt Count MPV Neut % (Auto) Lymph % (Auto) [place] % (Auto) Eos % (Auto) Baso % (Auto) Neut # (Auto) Lymph # (Auto) [place] # (Auto) Eos # (Auto) Baso # (Auto) PT INR Sodium Potassium Chloride Carbon Dioxide Anion Gap BUN Creatinine Est GFR ( Amer) Est GFR (Non-Af Amer) Random Glucose Calcium Total Bilirubin AST ALT Alkaline Phosphatase Ammonia Lactate Dehydrogenase 497 Total Protein Albumin Globulin Albumin/Globulin Ratio Triglycerides 305 H Cholesterol 123 LDL Cholesterol Direct 52 HDL Cholesterol 34 Lipase Urine Color Straw Urine Clarity Clear Urine pH 6.[address] 1.013 Urine Protein Negative Urine Glucose (UA) Normal Urine Ketones Negative Urine Blood Negative Urine Nitrate Negative Urine Bilirubin Negative Urine Urobilinogen Normal Ur Leukocyte Esterase Neg Ur Squamous Epith Cells Urine Bacteria Urine Opiates Screen Urine Methadone Screen Ur Barbiturates Screen Ur Phencyclidine Scrn Ur Amphetamines Screen U Benzodiazepines Scrn U Oth Cocaine Metabols U Cannabinoids Screen Alcohol, Quantitative HIV 1&2 Antibody Screen Negative Assessment & Plan - Assessment and Plan (Free Text) Assessment: Patient is a 27 year old male with PMH acute pancreatitis & ?HTN admitted for 1 day history of sharp stabbing abdominal pain rated 10/10 radiating into his chest, that started after a 1 week drinking binge, associated with nausea, vomiting, dizziness, and subjective fevers: 1) Abdominal Pain: Acute Pancreatitis vs Phlegmon Acute pancreatitis etiologies: - Lipase: 3171 - Triglycerides: 305 - HIV 1 & 2 Abx: negative screen - ETOH on admission: 91 Imaging: - CT abdomen/pelvis reviewed; Fluid stranding identified in the retroperitoneum centered around the pancreas consistent with acute pancreatitis. At the level of the posterior body/tail of the pancreas there is a somewhat loosely organized fluid collection measuring 4.1 x 1.4 cm, which represent a developing phlegmonous fluid collection. Small to moderate volume of free fluid evident in the pelvis. 1.7 cm low attenuation lesion seen in the upper pole of the right kidney. Mild left perinephric fat stranding and fluid - U/S reviewed - Hepatic steatosis, right upper pole cyst. otherwise unremarkable ultrasound Management: - NPO - Lactated Ringers at 200 ccs/hr for rehydration (started 01/08) - Morphine 2 mg IV Q4H PRN for moderate pain & Morphine 4 mg IV Q4H PRN for severe pain - GI recs: Remain NPO, rehydrate w/ LR, control pain, daily CBCs, monitor for infection (no abx recs at this time) - Surgery recs: CT pancreatic protocol in ~ 2 days to eval for abscess formation vs pancreatic necrosis, continue conservative management - Rhiannon's criteria - LDH (497), WBC 11.1, Age 27, Glucose 93, AST 46. - Rhiannon's criteria = 1% predicted mortality - Per BISAP score patient has <1 % risk of mortality 2) Nausea - F/u EKG - Pending no QTc, Zofran 4 mg IVP Q6H PRN 3) HTN - Metoprolol 5 mg IVP Q6H PRN for SBP > 160, hold for HR <60 4) Alcohol Use - CIWA, Aspiration and Seizure precautions initiated - Ativan 1mg Q6H PRN for withdrawal symptoms - Banana Bag @ 50 mls/hr - Will continue to monitor for withdrawal symptoms - Anion gap 25; will continue to trend 5) Tachycardia - likely 2/2 to pain - F/u EKG - Cxr - no active disease 6) Leukocytosis - Likely inflammatory 2/2 pancreatitis - F/u Blood & Urine Cxs - Will repeat CBC daily 7) Renal cyst - Will need outpatient monitor for renal cell carcinoma 8) Prophylaxis - SCDs A/P discussed with Dr. Yeager <[email or web address] V - Last Filed: 01/08/18 21:22> Results - Vital Signs Recent Vital Signs: Last Vital Signs Temp 98.8 F 01/08/18 15:54 Pulse 80 01/08/18 15:54 Resp 20 01/08/18 15:54 BP 146/97 H 01/08/18 15:54 Pulse Ox 99 01/08/18 15:54 - Labs Result Diagrams: 01/08/18 02:40 01/08/18 02:40 Labs: Laboratory Results - last 24 hr 01/08/18 01/08/18 01/08/18 02:40 02:40 02:40 WBC 11.1 H RBC 4.89 Hgb 16.3 D Hct 45.9 MCV 94.0 D MCH 33.3 H MCHC 35.4 RDW 12.7 Plt Count 236 MPV 8.6 Neut % (Auto) 79.3 H Lymph % (Auto) 13.4 L [place] % (Auto) 6.8 Eos % (Auto) 0.1 Baso % (Auto) 0.4 Neut # (Auto) 8.8 H Lymph # (Auto) 1.5 [place] # (Auto) 0.8 Eos # (Auto) 0.0 Baso # (Auto) 0.0 PT INR Sodium 136 Potassium 3.7 Chloride 92 L Carbon Dioxide 23 Anion Gap 25 H BUN 10 Creatinine 0.6 L Est GFR ( Amer) > 60 Est GFR (Non-Af Amer) > 60 Random Glucose 93 Calcium 8.9 Total Bilirubin 0.7 AST 46 ALT 55 Alkaline Phosphatase 62 Ammonia 10 Lactate Dehydrogenase Total Protein 7.5 Albumin 4.8 Globulin 2.7 Albumin/Globulin Ratio 1.8 Triglycerides Cholesterol LDL Cholesterol Direct HDL Cholesterol Lipase 3171 H Urine Color Urine Clarity Urine pH Ur Specific [address] Urine Protein Urine Glucose (UA) Urine Ketones Urine Blood Urine Nitrate Urine Bilirubin Urine Urobilinogen Ur Leukocyte Esterase Ur Squamous Epith Cells Urine Bacteria Urine Opiates Screen Urine Methadone Screen Ur Barbiturates Screen Ur Phencyclidine Scrn Ur Amphetamines Screen U Benzodiazepines Scrn U Oth Cocaine Metabols U Cannabinoids Screen Alcohol, Quantitative 91 H HIV 1&2 Antibody Screen 01/08/18 01/08/18 01/08/18 06:23 06:32 11:49 WBC RBC Hgb Hct MCV MCH MCHC RDW Plt Count MPV Neut % (Auto) Lymph % (Auto) [place] % (Auto) Eos % (Auto) Baso % (Auto) Neut # (Auto) Lymph # (Auto) [place] # (Auto) Eos # (Auto) Baso # (Auto) PT 12.0 INR 1.1 Sodium Potassium Chloride Carbon Dioxide Anion Gap BUN Creatinine Est GFR ( Amer) Est GFR (Non-Af Amer) Random Glucose Calcium Total Bilirubin AST ALT Alkaline Phosphatase Ammonia Lactate Dehydrogenase Total Protein Albumin Globulin Albumin/Globulin Ratio Triglycerides Cholesterol LDL Cholesterol Direct HDL Cholesterol Lipase Urine Color Straw Urine Clarity Clear Urine pH 6.[address] 1.005 Urine Protein Negative Urine Glucose (UA) Normal Urine Ketones Negative Urine Blood Negative Urine Nitrate Negative Urine Bilirubin Negative Urine Urobilinogen Normal Ur Leukocyte Esterase Neg Ur Squamous Epith Cells < 1 Urine Bacteria Rare Urine Opiates Screen Positive H Urine Methadone Screen Negative Ur Barbiturates Screen Negative Ur Phencyclidine Scrn Negative Ur Amphetamines Screen Negative U Benzodiazepines Scrn Negative U Oth Cocaine Metabols Negative U Cannabinoids Screen Negative Alcohol, Quantitative HIV 1&2 Antibody Screen 01/08/18 01/08/18 01/08/18 11:49 11:49 13:10 WBC RBC Hgb Hct MCV MCH MCHC RDW Plt Count MPV Neut % (Auto) Lymph % (Auto) [place] % (Auto) Eos % (Auto) Baso % (Auto) Neut # (Auto) Lymph # (Auto) [place] # (Auto) Eos # (Auto) Baso # (Auto) PT INR Sodium Potassium Chloride Carbon Dioxide Anion Gap BUN Creatinine Est GFR ( Amer) Est GFR (Non-Af Amer) Random Glucose Calcium Total Bilirubin AST ALT Alkaline Phosphatase Ammonia Lactate Dehydrogenase 497 Total Protein Albumin Globulin Albumin/Globulin Ratio Triglycerides 305 H Cholesterol 123 LDL Cholesterol Direct 52 HDL Cholesterol 34 Lipase Urine Color Straw Urine Clarity Clear Urine pH 6.[address] 1.013 Urine Protein Negative Urine Glucose (UA) Normal Urine Ketones Negative Urine Blood Negative Urine Nitrate Negative Urine Bilirubin Negative Urine Urobilinogen Normal Ur Leukocyte Esterase Neg Ur Squamous Epith Cells Urine Bacteria Urine Opiates Screen Urine Methadone Screen Ur Barbiturates Screen Ur Phencyclidine Scrn Ur Amphetamines Screen U Benzodiazepines Scrn U Oth Cocaine Metabols U Cannabinoids Screen Alcohol, Quantitative HIV 1&2 Antibody Screen Negative Attending/Attestation - Attestation I have personally seen and examined this patient.: Yes I have fully participated in the care of the patient.: Yes I have reviewed all pertinent clinical information: Yes Notes (Text): Patient seen, examined, and case discussed with day-time resident. Patient seen, examined in [facility] Bed 2 in the Emergency Room at 7:45AM on . Patient noted for alcohol binge for the past 4-5 days given recent birthday, reports one day occurence of abdominal pain. Patient denies nausea/denies vomitting. Discussed admitting orders with resident on admission. Assessment/Plan 1) Abdominal Pain Acute Alcoholic Pancreatitis Assessment/Plan * GI (Dr. Gonzales) on board-->help appreciated * General surgery (Dr. Villasenor) on board-->help appreciated * Henley's criteria - LDH (497) * 1% predicted mortality * Per BISAP score patient has <1 % risk of mortality * Imaging: CT abdomen/pelvis (01/08/18): Fluid stranding identified in the retroperitoneum centered around the pancreas consistent with acute pancreatitis. At the level of the posterior body/tail of the pancreas there is a somewhat loosely organized fluid collection measuring 4.1 x 1.4 cm, which represent a developing phlegmonous fluid collection. Small to moderate volume of free fluid evident in the pelvis. 1.7 cm low attenuation lesion seen in the upper pole of the right kidney. Mild left perinephric fat stranding and fluid * U/S (01/08/18): Hepatic steatosis, right upper pole cyst. otherwise unremarkable ultrasound * NPO * Lactated Ringers at 200 ccs/hr for rehydration (started 01/08) * PRN: * Morphine 2 mg IV Q4H PRN for moderate pain * Morphine 4 mg IV Q4H PRN for severe pain * Per surgery, CT pancreatic protocol in ~ 2 days to eval for abscess formation vs pancreatic necrosis, continue conservative management * Lipase: 3171 * Elevated Alcohol 2) Nausea Assessment/Plan * F/u EKG * Pending no QTc, Zofran 4 mg IVP Q6H PRN 3) Essential Hypertension Assessment/Plan * Patient was discharged on Norvasc last admission but is not taking it * Start Metoprolol 5 mg IVP Q6H PRN for SBP > 160, hold for HR <60 4) Alcohol Use Assessment/Plan * CIWA, Aspiration and Seizure precautions initiated * Ativan 1mg Q6H PRN for withdrawal symptom * Banana Bag @ 50 mls/hr X1 bag * Will need to see clinically if need to continue banana bag tomorrow or not * Last drink 48 hours ago 5) Tachycardia Assessment/Plan * likely 2/2 to pain * Cxr - no active disease 6) Leukocytosis Assessment/Plan * Likely inflammatory * Blood cultures X2 ordered, 30 min apart * UA and urine culture ordered 7) Renal cyst Assessment/Plan * Noted on Abdominal US * patient will need outpatient renal US to monitor cyst to monitor 8) Prophylaxis * Ambulatory * SCDs while at rest * Seizure precautions
--- NOTE | 2018-01-08 14:31 | CP.PCM.CON ---
History of Present Illness - History of Present Illness History of Present Illness: GENERAL SURGERY CONSULT NOTE FOR DR. VÁSQUEZ Surgery is consulted for 27yo male with history of alcohol abuse and acute pancreatitis. Patient states that he is experiencing 8/10 abdominal pain that he describes at hot and burning in the mid epigastric region. Patient states that he has been feeling pain for 2 days and that 2 weeks ago he was drinking 10 -12, 24oz beers daily. Patient also states that he had tried to quit with alcoholics anonymous for 6 months. Three months ago, patient had an episode of acute pancreatitis that he was admitted for. Patient states that in the prior episode he was hydrated and kept NPO, he felt better in 4 days and was discharged after 1 week. Patient states that he feels about the same now as he did when he was admitted 3 months ago. Patient states that he experienced nausea and was vomiting all day yesterday. The vomit was billious, without blood. He continues to feel nausea today. Patient feels warm, but denies fever/chills and diarrhea. Patient has not had a bowel movement in 2 days. Patient denies difficulty breathing and reduced appetite. 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 Review of Systems - Review of Systems Review of Systems: As per HPI - Constitutional Constitutional: absent: Chills, Fever Past Patient History - Infectious Disease Hx of Infectious Diseases: None - Past Medical History & Family History Past Medical History?: No - Past Social History Smoking Status: Unknown If Ever Smoked - CARDIAC Hx Cardiac Disorders: No - PULMONARY Hx Respiratory Disorders: No - NEUROLOGICAL Hx Neurological Disorder: No - HEENT Hx HEENT Problems: No - RENAL Hx Chronic Kidney Disease: No - ENDOCRINE/METABOLIC Hx Endocrine Disorders: No - HEMATOLOGICAL/ONCOLOGICAL Hx Blood Disorders: No - INTEGUMENTARY Hx Dermatological Problems: No - MUSCULOSKELETAL/RHEUMATOLOGICAL Hx Falls: No - GASTROINTESTINAL Hx Gastritis: Yes Hx Pancreatitis: Yes - GENITOURINARY/GYNECOLOGICAL Hx Genitourinary Disorders: No - PSYCHIATRIC Hx Substance Use: No - SURGICAL HISTORY Hx Surgeries: No - ANESTHESIA Hx Anesthesia: Yes Hx Anesthesia Reactions: No Meds Allergies/Adverse Reactions: Allergies Allergy/AdvReac Type Severity Reaction Status Date / Time No Known Allergies Allergy Verified 10/24/17 11:57 - Medications Medications: Current Medications Lactated Ringer's (Lactated Ringer's) 1,000 mls @ 200 mls/hr IV .Q5H ALETA Last Admin: 01/08/18 13:55 Dose: Not Given Multivitamins/Vitamin C 10 ml/Thiamine HCl 100 mg/ Folic Acid 1 mg/ Sodium Chloride 1,011.2 mls @ 50 mls/hr IV .[id number] ONE Stop: 01/09/18 06:13 Last Admin: 01/08/18 10:58 Dose: 50 mls/hr Lorazepam (Ativan) 1 mg IVP Q6H PRN PRN Reason: Seizure activity Metoprolol Tartrate (Lopressor) 5 mg IVP Q6H PRN PRN Reason: Systolic Blood Pressure Morphine Sulfate (Morphine) 2 mg IVP Q4 PRN PRN Reason: Pain, moderate (4-7) Last Admin: 01/08/18 09:39 Dose: 2 mg Morphine Sulfate (Morphine) 4 mg IVP Q4 PRN PRN Reason: Pain, severe (8-10) Physical Exam - Constitutional Appears: Non-toxic, No Acute Distress - Head Exam Head Exam: ATRAUMATIC, NORMAL INSPECTION - Eye Exam Eye Exam: EOMI, Normal appearance - ENT Exam ENT Exam: Mucous Membranes Moist - Respiratory Exam Respiratory Exam: NORMAL BREATHING PATTERN. absent: Respiratory Distress - Cardiovascular Exam Cardiovascular Exam: +S1, +S2 - GI/Abdominal Exam GI & Abdominal Exam: Soft, Tenderness (mildly diffusely tender but mostly epigastric). absent: Distended, Firm, Guarding, Rebound, Rigid Additional comments: Negative for Antoine Sign and Negative for Rovsing sign and negative for rebound at McBurney's point - Neurological Exam Neurological exam: Alert, CN II-XII Intact, Oriented x3 - Psychiatric Exam Psychiatric exam: Normal Affect, Normal Mood - Skin Skin Exam: Dry, Intact, Normal Color, Warm Results - Vital Signs Recent Vital Signs: Last Vital Signs Temp 97.9 F 01/08/18 09:00 Pulse 61 01/08/18 12:59 Resp 20 01/08/18 09:00 BP 149/104 H 01/08/18 12:59 Pulse Ox 98 01/08/18 09:00 - Labs Result Diagrams: 01/08/18 02:40 01/08/18 02:40 Labs: Laboratory Results - last 24 hr 01/08/18 01/08/18 01/08/18 02:40 02:40 02:40 WBC 11.1 H RBC 4.89 Hgb 16.3 D Hct 45.9 MCV 94.0 D MCH 33.3 H MCHC 35.4 RDW 12.7 Plt Count 236 MPV 8.6 Neut % (Auto) 79.3 H Lymph % (Auto) 13.4 L [place] % (Auto) 6.8 Eos % (Auto) 0.1 Baso % (Auto) 0.4 Neut # (Auto) 8.8 H Lymph # (Auto) 1.5 [place] # (Auto) 0.8 Eos # (Auto) 0.0 Baso # (Auto) 0.0 PT INR Sodium 136 Potassium 3.7 Chloride 92 L Carbon Dioxide 23 Anion Gap 25 H BUN 10 Creatinine 0.6 L Est GFR ( Amer) > 60 Est GFR (Non-Af Amer) > 60 Random Glucose 93 Calcium 8.9 Total Bilirubin 0.7 AST 46 ALT 55 Alkaline Phosphatase 62 Ammonia 10 Lactate Dehydrogenase Total Protein 7.5 Albumin 4.8 Globulin 2.7 Albumin/Globulin Ratio 1.8 Triglycerides Cholesterol LDL Cholesterol Direct HDL Cholesterol Lipase 3171 H Urine Color Urine Clarity Urine pH Ur Specific [place] Urine Protein Urine Glucose (UA) Urine Ketones Urine Blood Urine Nitrate Urine Bilirubin Urine Urobilinogen Ur Leukocyte Esterase Ur Squamous Epith Cells Urine Bacteria Urine Opiates Screen Urine Methadone Screen Ur Barbiturates Screen Ur Phencyclidine Scrn Ur Amphetamines Screen U Benzodiazepines Scrn U Oth Cocaine Metabols U Cannabinoids Screen Alcohol, Quantitative 91 H HIV 1&2 Antibody Screen 01/08/18 01/08/18 01/08/18 06:23 06:32 11:49 WBC RBC Hgb Hct MCV MCH MCHC RDW Plt Count MPV Neut % (Auto) Lymph % (Auto) [place] % (Auto) Eos % (Auto) Baso % (Auto) Neut # (Auto) Lymph # (Auto) [place] # (Auto) Eos # (Auto) Baso # (Auto) PT 12.0 INR 1.1 Sodium Potassium Chloride Carbon Dioxide Anion Gap BUN Creatinine Est GFR ( Amer) Est GFR (Non-Af Amer) Random Glucose Calcium Total Bilirubin AST ALT Alkaline Phosphatase Ammonia Lactate Dehydrogenase Total Protein Albumin Globulin Albumin/Globulin Ratio Triglycerides Cholesterol LDL Cholesterol Direct HDL Cholesterol Lipase Urine Color Straw Urine Clarity Clear Urine pH 6.0 Ur Specific [place] 1.005 Urine Protein Negative Urine Glucose (UA) Normal Urine Ketones Negative Urine Blood Negative Urine Nitrate Negative Urine Bilirubin Negative Urine Urobilinogen Normal Ur Leukocyte Esterase Neg Ur Squamous Epith Cells < 1 Urine Bacteria Rare Urine Opiates Screen Positive H Urine Methadone Screen Negative Ur Barbiturates Screen Negative Ur Phencyclidine Scrn Negative Ur Amphetamines Screen Negative U Benzodiazepines Scrn Negative U Oth Cocaine Metabols Negative U Cannabinoids Screen Negative Alcohol, Quantitative HIV 1&2 Antibody Screen 01/08/18 01/08/18 01/08/18 11:49 11:49 13:10 WBC RBC Hgb Hct MCV MCH MCHC RDW Plt Count MPV Neut % (Auto) Lymph % (Auto) [place] % (Auto) Eos % (Auto) Baso % (Auto) Neut # (Auto) Lymph # (Auto) [place] # (Auto) Eos # (Auto) Baso # (Auto) PT INR Sodium Potassium Chloride Carbon Dioxide Anion Gap BUN Creatinine Est GFR ( Amer) Est GFR (Non-Af Amer) Random Glucose Calcium Total Bilirubin AST ALT Alkaline Phosphatase Ammonia Lactate Dehydrogenase 497 Total Protein Albumin Globulin Albumin/Globulin Ratio Triglycerides 305 H Cholesterol 123 LDL Cholesterol Direct 52 HDL Cholesterol 34 Lipase Urine Color Straw Urine Clarity Clear Urine pH 6.0 Ur Specific [place] 1.013 Urine Protein Negative Urine Glucose (UA) Normal Urine Ketones Negative Urine Blood Negative Urine Nitrate Negative Urine Bilirubin Negative Urine Urobilinogen Normal Ur Leukocyte Esterase Neg Ur Squamous Epith Cells Urine Bacteria Urine Opiates Screen Urine Methadone Screen Ur Barbiturates Screen Ur Phencyclidine Scrn Ur Amphetamines Screen U Benzodiazepines Scrn U Oth Cocaine Metabols U Cannabinoids Screen Alcohol, Quantitative HIV 1&2 Antibody Screen Negative Assessment & Plan - Assessment and Plan (Free Text) Assessment: 27yo M with recurrent acute alcoholic pancreatitis with possible phlegmonous fluid collection Plan: - CT w/ IV contrast: fluid stranding in retroperitoneum around pancreas, loosely organized loculated fluid collection 4.1cm x 1.4cm - may represent developing phlegmonous fluid collection - US: no gallstones, hepatic steatosis - Will do CT-pancreatic protocol in about 2 days to evaluate for possible abscess formation/pancreatic necrosis - Continue conservative management for pancreatitis (IV fluids, NPO) - Discussed plan with Dr. Jacklyn Julien PGY-4
[2018-01-09] MEDS: Lactated Ringer's 1,000 ML IV SCH ×3 (02:43→16:21)
--- NOTE | 2018-01-09 06:15 | CP.PCM.PN ---
<Cristhian Randle - Last Filed: 01/09/18 15:51> Subjective - Date & Time of Evaluation Date of Evaluation: 01/09/18 Time of Evaluation: 07:00 - Subjective Subjective: PGY-1 Medicine Progress Note for Dr. Yeager Patient seen and examined today at bedside. He notes that he has mild persistence of nonradiating abdominal pain, located primarily over his LUQ and RUQ, rated 4/10 in intensity. He last requested pain medication at 4 am. He has been urinating consistently throughout the night, noting that he has gone approximately 7 times. He however, denies any BMs and notes he has not been passing gas. His last BM was 3 days ago. He denies current symptoms of nausea, vomiting, diarrhea, chest pain, palpitations, dizziness, blurry vision, or palpitations. He notes he does have an appetite and would like to eat. Objective - Vital Signs/Intake and Output Vital Signs (last 24 hours): Temp Pulse Resp BP Pulse Ox 97.9 F 70 18 132/86 100 01/09/18 00:00 01/09/18 00:00 01/09/18 00:00 01/09/18 00:00 01/09/18 00:00 Intake and Output: 01/08/18 01/09/18 18:59 06:59 Intake Total 600 2820 Output Total 500 Balance 600 2320 - Medications Medications: Current Medications Lactated Ringer's (Lactated Ringer's) 1,000 mls @ 200 mls/hr IV .Q5H ALETA Last Admin: 01/09/18 02:43 Dose: 200 mls/hr Lorazepam (Ativan) 1 mg IVP Q6H PRN PRN Reason: Seizure activity Metoprolol Tartrate (Lopressor) 5 mg IVP Q6H PRN PRN Reason: Systolic Blood Pressure Morphine Sulfate (Morphine) 2 mg IVP Q4 PRN PRN Reason: Pain, moderate (4-7) Last Admin: 01/09/18 04:25 Dose: 2 mg Morphine Sulfate (Morphine) 4 mg IVP Q4 PRN PRN Reason: Pain, severe (8-10) Ondansetron HCl (Zofran Inj) 4 mg IVP Q6H PRN PRN Reason: Nausea/Vomiting - Labs Labs: 01/08/18 02:40 01/08/18 02:40 PT 12.0 SECONDS (9.7-12.2) 01/08/18 11:49 INR 1.1 01/08/18 11:49 - Constitutional Appears: Non-toxic, No Acute Distress - Head Exam Head Exam: ATRAUMATIC, NORMAL INSPECTION, NORMOCEPHALIC - Eye Exam Eye Exam: EOMI, Normal appearance - Respiratory Exam Respiratory Exam: Clear to Ausculation Bilateral, NORMAL BREATHING PATTERN. absent: Rales, Rhonchi, Wheezes - Cardiovascular Exam Cardiovascular Exam: +S1, +S2. absent: Irregular Rhythm, Murmur - GI/Abdominal Exam GI & Abdominal Exam: Soft, Normal Bowel Sounds Additional comments: Normoactive bowel sounds, Mild tenderness to the RUQ, LUQ and diffusely across the lower abdomen, nondistended, with no rebound - Extremities Exam Extremities Exam: Normal Inspection. absent: Calf Tenderness, Pedal Edema Additional comments: No edema, palpable pulses - Neurological Exam Neurological Exam: Alert, Awake, Oriented x3 Additional comments: Romberg Sign negative, Finger to Nose negative - Psychiatric Exam Psychiatric exam: Normal Affect, Normal Mood - Skin Skin Exam: Dry, Intact, Normal Color, Warm Assessment and Plan - Assessment and Plan (Free Text) Assessment: Patient is a 27 year old male with no PMH admitted for 1 day history of sharp stabbing abdominal pain rated 10/10 radiating into his chest, that started after a 1 week drinking binge, associated with nausea, vomiting, dizziness, and subjective fevers. 1) Abdominal Pain: Acute Pancreatitis/Phlegmon - Lipase: 3171 - Triglycerides: 305 - HIV 1 & 2 Abx: negative screen - ETOH on admission: 91 Imaging: - CT abdomen/pelvis reviewed - Fluid stranding identified in the retroperitoneum centered around the pancreas consistent with acute pancreatitis. At the level of the posterior body/tail of the pancreas there is a somewhat loosely organized fluid collection measuring 4.1 x 1.4 cm, which represent a developing phlegmonous fluid collection. Small to moderate volume of free fluid evident in the pelvis. 1.7 cm low attenuation lesion seen in the upper pole of the right kidney. Mild left perinephric fat stranding and fluid. - U/S reviewed - Hepatic steatosis, right upper pole cyst. Otherwise unremarkable Management: - Clear liquid diet; Low fat diet tomorrow (01/10) to Advance as tolerated tomorrow as well - Lactated Ringers at 100 ccs/hr for rehydration (started 01/08) - Morphine 2 mg IV Q4H PRN for moderate pain and Morphine 4 mg IV Q4H PRN for severe pain - GI Recs: Advance to clear fluid diet (if tolerates can have low fat diet later , then ADAT) , IVF continue LRs until ensured good PO intake, control pain, daily CBCs, monitor for signs of infection but hold off on antibiotics at this time. - Signed off - Surgery recs: no acute surgical intervention needed at this time - Clinic appointment made 01/28/18 @ 1pm - Rhiannon's criteria (calculated 01/08/2018) = 1% predicted mortality - Per BISAP score (calculated 01/08/2018) < 1% risk of mortality 2) Nausea - Zofran 4 mg IVP Q6H PRN 3) HTN - Norvac 5mg PO daily 4) Alcohol use - CIWA, Aspiration and Seizure precautions initiated - Ativan 1 mg Q6H PRN for withdrawal symptoms - Continue to monitor for withdrawal symptoms - Anion gap closed to 18 (initially 25 on admission) - Pastoral care referred for alcohol abuse 5) Tachycardia - Resolved - likely 2/2 pain - CXR no active disease - will continue to monitor vitals 6) Leukocytosis - Resolved - Likely inflammatory 2/2 pancreatitis - Blood and urine cultures - no growth - Repeat CBC daily - WBC 11.1 -> 6.7 7) Renal Cyst - Will need outpatient monitor for renal cell carcinoma 8) Prophylaxis - SCDs Dispo: 9/ AM diet to low fat, if tolerated well, advance diet. If patient subsides, patient is likely a discharge 01/10 - 01/11. Patient will need to be discharged with Norvasc 5mg daily. Patient has a clinic appointment on 01/28/18 @ 1pm. <Praveena Yeager V - Last Filed: 01/09/18 21:58> Objective - Vital Signs/Intake and Output Vital Signs (last 24 hours): Temp Pulse Resp BP Pulse Ox 98.0 F 69 20 146/94 H 99 01/09/18 16:05 01/09/18 16:05 01/09/18 16:05 01/09/18 16:05 01/09/18 16:05 - Medications Medications: Current Medications Amlodipine Besylate (Norvasc) 5 mg PO DAILY ALETA Lactated Ringer's (Lactated Ringer's) 1,000 mls @ 100 mls/hr IV .Q10H ALETA Last Admin: 01/09/18 16:21 Dose: 100 mls/hr Lorazepam (Ativan) 1 mg IVP Q6H PRN PRN Reason: Seizure activity Morphine Sulfate (Morphine) 2 mg IVP Q4 PRN PRN Reason: Pain, moderate (4-7) Last Admin: 01/09/18 21:00 Dose: 2 mg Morphine Sulfate (Morphine) 4 mg IVP Q4 PRN PRN Reason: Pain, severe (8-10) Ondansetron HCl (Zofran Inj) 4 mg IVP Q6H PRN PRN Reason: Nausea/Vomiting - Labs Labs: 01/09/18 07:18 01/09/18 07:18 PT 12.0 SECONDS (9.7-12.2) 01/08/18 11:49 INR 1.1 01/08/18 11:49 Attending/Attestation - Attestation I have personally seen and examined this patient.: Yes I have fully participated in the care of the patient.: Yes I have reviewed all pertinent clinical information, including history, physical exam and plan: Yes Notes (Text): Patient seen, examined, and case discussed with certified medical records coder Patient seen this afternoon. Patient reports abdominal pain has improved to 4/ 10. Patient reports he has tolerated liquid diet at lunch as advanced by GI. We will lower the fluids to 100cc/hr. Patient reports he used to go to [employer]coholic Anonymous and was sober for 3 months but then for a reason he does not know he started to binge drink this past week. I did explained to him with recurrent bouts of pancreatitis he poses him risks to chronic pancreatitis, psuedocysts which can bleed, as well as pancreatic cancer. I did explained to him soberity is lifelong process with alcoholics and needs to reconnect with his mentor through the AA. I also did explain to him he does have hypertension which he requires Norvasc 5mg PO once day. GI has signed off. Help appreciated General surgery has noted no acute surgery intervention at this time. If patient does not have abdominal pain with liquids, will advance to low fat tomorrow. Patient is scheduled for follow-up at the [facility] when he is ready to be discharge. He will need a secondary hypertension workup when his episodes of pancreatitis has resolved given his young age in light of elevated blood pressure. Assessment/Plan 1) Abdominal Pain Acute Alcoholic Pancreatitis Assessment/Plan * GI (Dr. Gonzales) on board-->help appreciated * General surgery (Dr. Villasenor) on board-->help appreciated * Rhiannon's criteria - L[facility] (497) * 1% predicted mortality * Per BISAP score patient has <1 % risk of mortality * Imaging: CT abdomen/pelvis (01/08/18): Fluid stranding identified in the retroperitoneum centered around the pancreas consistent with acute pancreatitis. At the level of the posterior body/tail of the pancreas there is a somewhat loosely organized fluid collection measuring 4.1 x 1.4 cm, which represent a developing phlegmonous fluid collection. Small to moderate volume of free fluid evident in the pelvis. 1.7 cm low attenuation lesion seen in the upper pole of the right kidney. Mild left perinephric fat stranding and fluid * U/S (01/08/18): Hepatic steatosis, right upper pole cyst. otherwise unremarkable ultrasound * Liquid diet * Lactated Ringers at 100 ccs/hr * PRN: * Morphine 2 mg IV Q4H PRN for moderate pain * Morphine 4 mg IV Q4H PRN for severe pain * Per surgery, CT pancreatic protocol in ~ 2 days to eval for abscess formation vs pancreatic necrosis, continue conservative management from initial consult; no acute intervention at this time * Lipase: 3171 * Elevated Alcohol 2) Nausea Assessment/Plan * F/u EKG * Pending no QTc, Zofran 4 mg IVP Q6H PRN 3) Essential Hypertension Assessment/Plan * Patient was discharged on Norvasc last admission but is not taking it * Restart Norvasc 5mg PO daily 4) Alcohol Use Assessment/Plan * CIWA, Aspiration and Seizure precautions initiated * Ativan 1mg Q6H PRN for withdrawal symptom * Start Thiamine 100mg PO daily, Folic acid 1mg PO daily, MVI 1 tab PO daily 5) Tachycardia Assessment/Plan * likely 2/2 to pain * Cxr - no active disease 6) Leukocytosis Assessment/Plan * Likely inflammatory * Blood cultures X2 ordered, 30 min apart-->negative * UA and urine culture ordered-->negative 7) Renal cyst Assessment/Plan * Noted on Abdominal US * patient will need outpatient renal US to monitor cyst to monitor 8) Prophylaxis * Ambulatory * SCDs while at rest * Seizure precautions
[2018-01-09 07:43] LABS: ALB/GLOB RATIO 1.5 (1.0-2.1); ALT/SGPT 39 U/L (21-72); AST/SGOT 54 U/L (17-59); BLOOD UREA NITROGEN 5 mg/dL (9-20); CALCIUM 8.8 mg/dl (8.6-10.4); GFR NON-AFRICAN AMERICAN > 60
[2018-01-09 07:45] LABS: BASO % 0.5 % (0.0-2.0); EOS # 0.1 K/uL (0.0-0.7); EOS % 1.3 % (0.0-4.0); LYMPH % 14.6 % (20.0-40.0); MEAN PLATELET VOLUME 9.3 fL (7.2-11.7); MONO # 0.5 K/uL (0.0-0.8); MONO % 7.5 % (0.0-10.0); NEUT # 5.1 K/uL (1.8-7.0); NEUT % 76.1 % (50.0-75.0); NRBC % 0.2 % (0.0-2.0); RED CELL DISTRIBUTION WIDTH 12.8 % (11.5-14.5); WHITE BLOOD COUNT 6.7 K/uL (4.8-10.8)
[2018-01-09 08:09] LABS: RBC 4.33 Mil/uL (4.40-5.90)
[2018-01-09 08:10] LABS: MEAN CELL VOLUME 94.9 fL (80.0-94.0); MEAN CORPUSCULAR HGB CONC 34.8 g/dL (33.0-37.0)
[2018-01-09 08:12] LABS: HEMOGLOBIN 14.3 g/dL (12.0-18.0)
--- NOTE | 2018-01-09 09:28 | CP.PCM.PN ---
<Philippe Simental - Last Filed: 01/09/18 09:23> Subjective - Date & Time of Evaluation Date of Evaluation: 01/09/18 Time of Evaluation: 07:15 - Subjective Subjective: PGY-4 GI Fellow Prog Note Pt lying in bed when seen this AM. States abd pain much improved from 8/10 to 4 /10 today and would like to eat. 5 point ROS negative other than stated above Objective - Vital Signs/Intake and Output Vital Signs (last 24 hours): Temp Pulse Resp BP Pulse Ox 98 F 82 20 157/104 H 99 01/09/18 07:00 01/09/18 07:00 01/09/18 07:00 01/09/18 07:00 01/09/18 07:00 Intake and Output: 01/09/18 01/09/18 06:59 18:59 Intake Total 4010 Output Total 500 Balance 3510 - Medications Medications: Current Medications Lactated Ringer's (Lactated Ringer's) 1,000 mls @ 200 mls/hr IV .Q5H ALETA Last Admin: 01/09/18 02:43 Dose: 200 mls/hr Lorazepam (Ativan) 1 mg IVP Q6H PRN PRN Reason: Seizure activity Metoprolol Tartrate (Lopressor) 5 mg IVP Q6H PRN PRN Reason: Systolic Blood Pressure Morphine Sulfate (Morphine) 2 mg IVP Q4 PRN PRN Reason: Pain, moderate (4-7) Last Admin: 01/09/18 04:25 Dose: 2 mg Morphine Sulfate (Morphine) 4 mg IVP Q4 PRN PRN Reason: Pain, severe (8-10) Ondansetron HCl (Zofran Inj) 4 mg IVP Q6H PRN PRN Reason: Nausea/Vomiting - Labs Labs: 01/09/18 07:18 01/09/18 07:18 PT 12.0 SECONDS (9.7-12.2) 01/08/18 11:49 INR 1.1 01/08/18 11:49 - Constitutional Appears: Well, Non-toxic, No Acute Distress - Head Exam Head Exam: ATRAUMATIC, NORMAL INSPECTION - Eye Exam Eye Exam: EOMI. absent: Conjunctival injection, Scleral icterus - ENT Exam ENT Exam: Mucous Membranes Dry, Normal External Ear Exam. absent: Mucous Membranes Moist - Respiratory Exam Respiratory Exam: NORMAL BREATHING PATTERN. absent: Wheezes - Cardiovascular Exam Cardiovascular Exam: REGULAR RHYTHM, RRR - GI/Abdominal Exam GI & Abdominal Exam: Soft, Tenderness (mildly in epigastrum (w/o guardin and improved)), Normal Bowel Sounds. absent: Bruit, Distended, Firm, Guarding, Rigid, Hyperactive Bowel Sounds, Mass, Organomegaly, Pulsatile Mass, Rebound Assessment and Plan - Assessment and Plan (Free Text) Assessment: 27 yo male with h/o acute pancreatitis presenting with abdominal pain, N/V. # Acute Pancreatitis: Improving. 3/3 criteria with complication of fabian- pancreatic fluid collection. No sign of necrosis or systemic infection upon admission. Trigger related to EtOH, no stones on CT and labs not suggestive. Plan: - Advance to clears this AM, if tolerates can have low fat diet later today, then ADAT - IVF with LR until ensured good PO intake, then can stop - Pain control - Counseled on EtOH cessation - Daily CBCs, monitor for signs of infection - Hold off antibiotics for now Pt seen and examined with Dr. Gonzales. Please see attestation for further recs/ changes. <Cassandra Gonzales - Last Filed: 01/09/18 11:43> Objective - Vital Signs/Intake and Output Vital Signs (last 24 hours): Temp Pulse Resp BP Pulse Ox 98 F 68 20 142/99 H 99 01/09/18 07:00 01/09/18 10:01 01/09/18 07:00 01/09/18 10:01 01/09/18 07:00 Intake and Output: 01/09/18 01/09/18 06:59 18:59 Intake Total 4010 Output Total 500 Balance 3510 - Medications Medications: Current Medications Lactated Ringer's (Lactated Ringer's) 1,000 mls @ 200 mls/hr IV .Q5H ALETA Last Admin: 01/09/18 09:58 Dose: 200 mls/hr Potassium Chloride (Potassium Chloride 20 Meq/100 Ml) 20 meq in 100 mls @ 50 mls/hr IVPB Q2H ALETA Stop: 01/09/18 13:44 Lorazepam (Ativan) 1 mg IVP Q6H PRN PRN Reason: Seizure activity Metoprolol Tartrate (Lopressor) 5 mg IVP Q6H PRN PRN Reason: Systolic Blood Pressure Last Admin: 01/09/18 10:02 Dose: 5 mg Morphine Sulfate (Morphine) 2 mg IVP Q4 PRN PRN Reason: Pain, moderate (4-7) Last Admin: 01/09/18 10:07 Dose: 2 mg Morphine Sulfate (Morphine) 4 mg IVP Q4 PRN PRN Reason: Pain, severe (8-10) Ondansetron HCl (Zofran Inj) 4 mg IVP Q6H PRN PRN Reason: Nausea/Vomiting - Labs Labs: 01/09/18 07:18 01/09/18 07:18 PT 12.0 SECONDS (9.7-12.2) 01/08/18 11:49 INR 1.1 01/08/18 11:49 Attending/Attestation - Attestation I have personally seen and examined this patient.: Yes I have fully participated in the care of the patient.: Yes I have reviewed all pertinent clinical information, including history, physical exam and plan: Yes Notes (Text): 01/09/18 11:42 This is a 27 yo male with h/o acute pancreatitis presenting with abdominal pain , N/V in setting of alcohol pancreatitis with complication of fabian-pancreatic fluid collection. No sign of necrosis or systemic infection upon admission. Trigger related to EtOH, no stones on CT and labs not suggestive. Symptoms have resolved. No ileus. Advance diet as tolerated. Will sign off
--- NOTE | 2018-01-09 12:49 | CP.PCM.PN ---
Subjective - Date & Time of Evaluation Date of Evaluation: 01/09/18 Time of Evaluation: 07:50 - Subjective Subjective: Patient seen and examined. No acute events over night. Reports abdominal pain has improved. Denies n/v. Objective - Vital Signs/Intake and Output Vital Signs (last 24 hours): Temp Pulse Resp BP Pulse Ox 98 F 68 20 142/99 H 99 01/09/18 07:00 01/09/18 10:01 01/09/18 07:00 01/09/18 10:01 01/09/18 07:00 Intake and Output: 01/09/18 01/09/18 06:59 18:59 Intake Total 4010 Output Total 500 Balance 3510 - Medications Medications: Current Medications Lactated Ringer's (Lactated Ringer's) 1,000 mls @ 200 mls/hr IV .Q5H [facility] Last Admin: 01/09/18 09:58 Dose: 200 mls/hr Potassium Chloride (Potassium Chloride 20 Meq/100 Ml) 20 meq in 100 mls @ 50 mls/hr IVPB Q2H [facility] Stop: 01/09/18 13:44 Last Admin: 01/09/18 12:16 Dose: 50 mls/hr Lorazepam (Ativan) 1 mg IVP Q6H PRN PRN Reason: Seizure activity Metoprolol Tartrate (Lopressor) 5 mg IVP Q6H PRN PRN Reason: Systolic Blood Pressure Last Admin: 01/09/18 10:02 Dose: 5 mg Morphine Sulfate (Morphine) 2 mg IVP Q4 PRN PRN Reason: Pain, moderate (4-7) Last Admin: 01/09/18 10:07 Dose: 2 mg Morphine Sulfate (Morphine) 4 mg IVP Q4 PRN PRN Reason: Pain, severe (8-10) Ondansetron HCl (Zofran Inj) 4 mg IVP Q6H PRN PRN Reason: Nausea/Vomiting - Labs Labs: 01/09/18 07:18 01/09/18 07:18 PT 12.0 SECONDS (9.7-12.2) 01/08/18 11:49 INR 1.1 01/08/18 11:49 - Constitutional Appears: No Acute Distress - Head Exam Head Exam: NORMOCEPHALIC - Eye Exam Eye Exam: EOMI, Normal appearance - ENT Exam ENT Exam: Mucous Membranes Moist - Respiratory Exam Respiratory Exam: NORMAL BREATHING PATTERN - Cardiovascular Exam Cardiovascular Exam: +S1, +S2 - GI/Abdominal Exam GI & Abdominal Exam: Soft, Tenderness Additional comments: mild epigastric pain - Neurological Exam Neurological Exam: Alert, Awake, Oriented x3 - Skin Skin Exam: Dry, Intact, Warm Assessment and Plan - Assessment and Plan (Free Text) Assessment: 27M with alcoholic pancreatitis Plan: -Abdominal tenderness much improved -Advance diet as tolerated -No acute surgical intervention needed at this present time -D/w Dr. Jacklyn Rai PGY3
[2018-01-09] MEDS ORDERED: Magnesium Sulfate 1 gm in D5W 1 GM/100 ML BAG IVPB ONE (16:00)
--- NOTE | 2018-01-09 19:40 | CARD ---
APPROVED REPORT Date of service: 01/08/2018 EKG Measurement Heart [id number] <Conclusion> Normal sinus rhythm with sinus arrhythmia Normal ECG
[2018-01-10 00:40] VITALS: O2SAT 100
[2018-01-10] MEDS: Lactated Ringer's 1,000 ML IV SCH (01:09)
[2018-01-10 07:52] VITALS: RESP 18; TEMP 98.1
[2018-01-10 08:17] LABS: BASO % 0.5 % (0.0-2.0); EOS # 0.3 K/uL (0.0-0.7); EOS % 5.5 % (0.0-4.0); HEMOGLOBIN 14.3 g/dL (12.0-18.0); LYMPH # 1.2 K/uL (1.0-4.3); LYMPH % 21.3 % (20.0-40.0); MEAN CELL VOLUME 95.1 fL (80.0-94.0); MEAN CORPUSCULAR HEMOGLOBIN 33.4 pg (27.0-31.0); MEAN CORPUSCULAR HGB CONC 35.1 g/dL (33.0-37.0); MEAN PLATELET VOLUME 9.4 fL (7.2-11.7); MONO # 0.5 K/uL (0.0-0.8); MONO % 9.4 % (0.0-10.0); NEUT # 3.5 K/uL (1.8-7.0); NEUT % 63.3 % (50.0-75.0); NRBC % 0.1 % (0.0-2.0); RBC 4.27 Mil/uL (4.40-5.90); RED CELL DISTRIBUTION WIDTH 12.9 % (11.5-14.5); WHITE BLOOD COUNT 5.6 K/uL (4.8-10.8)
[2018-01-10 08:47] LABS: ALB/GLOB RATIO 1.3 (1.0-2.1); ALBUMIN 4.4 g/dL (3.5-5.0); ALT/SGPT 41 U/L (21-72); AST/SGOT 44 U/L (17-59); BLOOD UREA NITROGEN 5 mg/dL (9-20); CALCIUM 9.5 mg/dl (8.6-10.4); GFR NON-AFRICAN AMERICAN > 60
--- NOTE | 2018-01-10 08:58 | CP.PCM.PN ---
Subjective - Date & Time of Evaluation Date of Evaluation: 01/10/18 Time of Evaluation: 08:56 - Subjective Subjective: Medical Attending Note: patient seen and examined. Patient eating breakfast at bedside at present. Patient noting abdominal pain is about 2/10 on pain scale. Patient reports he feels warm, denies fever, denies chills, denies nausea, denies constipation, denies diarrhea. We will re-eval later to determine if patient is going home later today Objective - Vital Signs/Intake and Output Vital Signs (last 24 hours): Temp Pulse Resp BP Pulse Ox 98.1 F 66 18 146/102 H 100 01/10/18 07:46 01/10/18 07:46 01/10/18 07:46 01/10/18 07:46 01/10/18 07:46 Intake and Output: 01/10/18 01/10/18 06:59 18:59 Intake Total 770 Balance 770 - Medications Medications: Current Medications Amlodipine Besylate (Norvasc) 5 mg PO DAILY [facility] Folic Acid (Folic Acid) 1 mg PO DAILY [facility] Lactated Ringer's (Lactated Ringer's) 1,000 mls @ 100 mls/hr IV .Q10H [facility] Last Admin: 01/10/18 01:09 Dose: 100 mls/hr Lorazepam (Ativan) 1 mg IVP Q6H PRN PRN Reason: Seizure activity Morphine Sulfate (Morphine) 2 mg IVP Q4 PRN PRN Reason: Pain, moderate (4-7) Last Admin: 01/10/18 04:28 Dose: 2 mg Morphine Sulfate (Morphine) 4 mg IVP Q4 PRN PRN Reason: Pain, severe (8-10) Multivitamins (Hexavitamin) 1 tab PO DAILY [facility] Ondansetron HCl (Zofran Inj) 4 mg IVP Q6H PRN PRN Reason: Nausea/Vomiting Thiamine HCl (Vitamin B1 Tab) 100 mg PO DAILY [facility] - Labs Labs: 01/10/18 08:07 01/10/18 08:07 PT 12.0 SECONDS (9.7-12.2) 01/08/18 11:49 INR 1.1 01/08/18 11:49 - Constitutional Appears: Non-toxic, No Acute Distress - Head Exam Head Exam: NORMAL INSPECTION - Eye Exam Eye Exam: EOMI - ENT Exam ENT Exam: Mucous Membranes Moist - Respiratory Exam Respiratory Exam: Clear to Ausculation Bilateral, NORMAL BREATHING PATTERN. absent: Rales, Rhonchi, Wheezes - Cardiovascular Exam Cardiovascular Exam: REGULAR RHYTHM, +S1, +S2 - GI/Abdominal Exam GI & Abdominal Exam: Soft, Normal Bowel Sounds. absent: Distended, Firm, Guarding, Rigid, Tenderness, Rebound - Extremities Exam Extremities Exam: absent: Pedal Edema, Tenderness - Neurological Exam Neurological Exam: Alert, Awake, Oriented x3 - Psychiatric Exam Psychiatric exam: Normal Affect, Normal Mood - Skin Skin Exam: Dry, Intact, Normal Color, Warm Assessment and Plan - Assessment and Plan (Free Text) Assessment: Assessment/Plan 1) Abdominal Pain Acute Alcoholic Pancreatitis Assessment/Plan * GI (Dr. Gonzales) on board-->help appreciated * General surgery (Dr. Villasenor) on board-->help appreciated * Rhiannon's criteria - LDH (497) * 1% predicted mortality * Per BISAP score patient has <1 % risk of mortality * Imaging: CT abdomen/pelvis (01/08/18): Fluid stranding identified in the retroperitoneum centered around the pancreas consistent with acute pancreatitis. At the level of the posterior body/tail of the pancreas there is a somewhat loosely organized fluid collection measuring 4.1 x 1.4 cm, which represent a developing phlegmonous fluid collection. Small to moderate volume of free fluid evident in the pelvis. 1.7 cm low attenuation lesion seen in the upper pole of the right kidney. Mild left perinephric fat stranding and fluid * U/S (01/08/18): Hepatic steatosis, right upper pole cyst. otherwise unremarkable ultrasound * Diet advanced this morning * PRN: * Morphine 2 mg IV Q4H PRN for moderate pain * Morphine 4 mg IV Q4H PRN for severe pain * Per surgery, CT pancreatic protocol in ~ 2 days to eval for abscess formation vs pancreatic necrosis, continue conservative management from initial consult; no acute intervention at this time * Lipase: 3171 * Elevated Alcohol 2) Nausea -->resolved Assessment/Plan * Zofran 4 mg IVP Q6H PRN 3) Essential Hypertension Assessment/Plan * Patient was discharged on Norvasc last admission but is not taking it * Increase Norvasc 10mg PO daily * Lower IV fluids 4) Alcohol Use Assessment/Plan * CIWA, Aspiration and Seizure precautions initiated * Ativan 1mg Q6H PRN for withdrawal symptom * c/w Thiamine 100mg PO daily, Folic acid 1mg PO daily, MVI 1 tab PO daily * Will need to follow-up with AA upon discharge 5) Tachycardia-->resolved Assessment/Plan * likely 2/2 to pain * Cxr - no active disease 6) Leukocytosis-->resolved Assessment/Plan * Likely inflammatory * Blood cultures X2 ordered, 30 min apart-->negative * UA and urine culture ordered-->negative 7) Renal cyst Assessment/Plan * Noted on Abdominal US * patient will need outpatient renal US to monitor cyst to monitor 8) Prophylaxis * Ambulatory * SCDs while at rest * Seizure precautions Disposition: possible discharge later today. [facility] will need [facility] at 1PM at [facility]. He is strongly recommended to re-establish his commitment to sobriety and reengage with AA meetings. Patient will need Norvasc 10mg PO once a day (30 tabs/0).
--- NOTE | 2018-01-10 09:37 | CP.PCM.PN ---
Subjective - Date & Time of Evaluation Date of Evaluation: 01/10/18 Time of Evaluation: 07:45 - Subjective Subjective: Patient seen and examined. No acute events over night. Reports abdominal pain has improved. Denies n/v. Reports slight epigastric tenderness. Passing flatus and having BM. Objective - Vital Signs/Intake and Output Vital Signs (last 24 hours): Temp Pulse Resp BP Pulse Ox 98.1 F 67 18 154/103 H 100 01/10/18 07:46 01/10/18 09:23 01/10/18 07:46 01/10/18 09:23 01/10/18 07:46 Intake and Output: 01/10/18 01/10/18 06:59 18:59 Intake Total 770 Balance 770 - Medications Medications: Current Medications Amlodipine Besylate (Norvasc) 10 mg PO DAILY [facility] Folic Acid (Folic Acid) 1 mg PO DAILY [facility] Last Admin: 01/10/18 09:24 Dose: 1 mg Lorazepam (Ativan) 1 mg IVP Q6H PRN PRN Reason: Seizure activity Morphine Sulfate (Morphine) 2 mg IVP Q4 PRN PRN Reason: Pain, moderate (4-7) Last Admin: 01/10/18 04:28 Dose: 2 mg Morphine Sulfate (Morphine) 4 mg IVP Q4 PRN PRN Reason: Pain, severe (8-10) Multivitamins (Hexavitamin) 1 tab PO DAILY [facility] [place] Last Admin: 01/10/18 09:24 Dose: 1 tab Ondansetron HCl (Zofran Inj) 4 mg IVP Q6H PRN PRN Reason: Nausea/Vomiting Thiamine HCl (Vitamin B1 Tab) 100 mg PO DAILY [facility] Last Admin: 01/10/18 09:24 Dose: 100 mg - Labs Labs: 01/10/18 08:07 01/10/18 08:07 PT 12.0 SECONDS (9.7-12.2) 01/08/18 11:49 INR 1.1 01/08/18 11:49 - Constitutional Appears: No Acute Distress - Head Exam Head Exam: NORMOCEPHALIC - Eye Exam Eye Exam: EOMI, Normal appearance - ENT Exam ENT Exam: Mucous Membranes Moist - Respiratory Exam Respiratory Exam: NORMAL BREATHING PATTERN - Cardiovascular Exam Cardiovascular Exam: +S1, +S2 - GI/Abdominal Exam GI & Abdominal Exam: Soft, Tenderness Additional comments: epigastric tenderness - Neurological Exam Neurological Exam: Alert, Awake, Oriented x3 - Psychiatric Exam Psychiatric exam: Normal Mood - Skin Skin Exam: Dry, Intact, Warm Assessment and Plan - Assessment and Plan (Free Text) Assessment: 27M with acute pancreatitis 2/2 EtOH abuse Plan: Adv diet as tolerated Patient will need f/u CT pancreatic protocol done to evaluate for possible abscess formation/pancreatic necrosis as per Dr. Villasenor D/w Dr. Jacklyn Rai PGY3
[2018-01-10] MEDS ORDERED: Multiple Vitamins Tab PO SCH (10:00)
[2018-01-10 11:40] VITALS: BP 138/95; PULSE 65
--- NOTE | 2018-01-10 20:34 | CP.PCM.DIS ---
<Reilly Anders - Last Filed: 01/10/18 20:14> Provider - Provider Date of Admission: 01/08/18 06:55 Attending physician: Praveena Yeager DO Time Spent in preparation of Discharge (in minutes): 45 Hospital Course - Lab Results Lab Results: Micro Results 01/08/18 13:10 Blood Blood Culture - Preliminary NO GROWTH AFTER 48 HOURS 01/08/18 11:49 Blood Blood Culture - Preliminary NO GROWTH AFTER 48 HOURS 01/08/18 13:10 Urine Urine Culture - Final No Growth (<1,000 CFU/ML) Most Recent Lab Values WBC 5.6 K/uL (4.8-10.8) 01/10/18 08:07 RBC 4.27 Mil/uL (4.40-5.90) L 01/10/18 08:07 Hgb 14.3 g/dL (12.0-18.0) 01/10/18 08:07 Hct 40.6 % (35.0-51.0) 01/10/18 08:07 MCV 95.1 fL (80.0-94.0) H 01/10/18 08:07 MCH 33.4 pg (27.0-31.0) H 01/10/18 08:07 MCHC 35.1 g/dL (33.0-37.0) 01/10/18 08:07 RDW 12.9 % (11.5-14.5) 01/10/18 08:07 Plt Count 182 K/uL (130-400) 01/10/18 08:07 MPV 9.4 fL (7.2-11.7) 01/10/18 08:07 Neut % (Auto) 63.3 % (50.0-75.0) 01/10/18 08:07 Lymph % (Auto) 21.3 % (20.0-40.0) 01/10/18 08:07 [place] % (Auto) 9.4 % (0.0-10.0) 01/10/18 08:07 Eos % (Auto) 5.5 % (0.0-4.0) H 01/10/18 08:07 Baso % (Auto) 0.5 % (0.0-2.0) 01/10/18 08:07 Neut # (Auto) 3.5 K/uL (1.8-7.0) 01/10/18 08:07 Lymph # (Auto) 1.2 K/uL (1.0-4.3) 01/10/18 08:07 [place] # (Auto) 0.5 K/uL (0.0-0.8) 01/10/18 08:07 Eos # (Auto) 0.3 K/uL (0.0-0.7) 01/10/18 08:07 Baso # (Auto) 0.0 K/uL (0.0-0.2) 01/10/18 08:07 PT 12.0 SECONDS (9.7-12.2) 01/08/18 11:49 INR 1.1 01/08/18 11:49 Sodium 140 mmol/L (132-148) 01/10/18 08:07 Potassium 3.6 mmol/L (3.6-5.2) 01/10/18 08:07 Chloride 94 mmol/L (98-107) L 01/10/18 08:07 Carbon Dioxide 32 mmol/L (22-30) H 01/10/18 08:07 Anion Gap 17 (10-20) 01/10/18 08:07 BUN 5 mg/dL (9-20) L 01/10/18 08:07 Creatinine 0.6 mg/dL (0.8-1.5) L 01/10/18 08:07 Est GFR ( Amer) > 60 01/10/18 08:07 Est GFR (Non-Af Amer) > 60 01/10/18 08:07 Random Glucose 98 mg/dL (75-110) 01/10/18 08:07 Calcium 9.5 mg/dl (8.6-10.4) 01/10/18 08:07 Phosphorus 3.8 mg/dL (2.5-4.5) 01/10/18 08:07 Magnesium 2.0 mg/dL (1.6-2.3) 01/10/18 08:07 Total Bilirubin 0.9 mg/dL (0.2-1.3) 01/10/18 08:07 AST 44 U/L (17-59) 01/10/18 08:07 ALT 41 U/L (21-72) 01/10/18 08:07 Alkaline Phosphatase 73 U/L (38-126) 01/10/18 08:07 Ammonia 10 umol/L (9-33) 01/08/18 02:40 Lactate Dehydrogenase 497 U/L (313-618) 01/08/18 11:49 Total Protein 7.7 g/dL (6.3-8.3) 01/10/18 08:07 Albumin 4.4 g/dL (3.5-5.0) 01/10/18 08:07 Globulin 3.3 gm/dL (2.2-3.9) 01/10/18 08:07 Albumin/Globulin Ratio 1.3 (1.0-2.1) 01/10/18 08:07 Triglycerides 305 mg/dL (0-149) H 01/08/18 11:49 Cholesterol 123 mg/dL (0-199) 01/08/18 11:49 LDL Cholesterol Direct 52 mg/dL (0-129) 01/08/18 11:49 HDL Cholesterol 34 mg/dL (30-70) 01/08/18 11:49 Lipase 3171 U/L (23-300) H 01/08/18 02:40 Urine Color Straw (YELLOW) 01/08/18 13:10 Urine Clarity Clear (Clear) 01/08/18 13:10 Urine pH 6.0 (5.0-8.0) 01/08/18 13:10 Ur Specific [place] 1.013 (1.003-1.030) 01/08/18 13:10 Urine Protein Negative mg/dL (NEGATIVE) 01/08/18 13:10 Urine Glucose (UA) Normal mg/dL (Normal) 01/08/18 13:10 Urine Ketones Negative mg/dL (NEGATIVE) 01/08/18 13:10 Urine Blood Negative (NEGATIVE) 01/08/18 13:10 Urine Nitrate Negative (NEGATIVE) 01/08/18 13:10 Urine Bilirubin Negative (NEGATIVE) 01/08/18 13:10 Urine Urobilinogen Normal mg/dL (0.2-1.0) 01/08/18 13:10 Ur Leukocyte Esterase Neg Karl/uL (Negative) 01/08/18 13:10 Ur Squamous Epith Cells < 1 /hpf (0-5) 01/08/18 06:23 Urine Bacteria Rare (<OCC) 01/08/18 06:23 Urine Opiates Screen Positive (NEGATIVE) H 01/08/18 06:32 Urine Methadone Screen Negative (NEGATIVE) 01/08/18 06:32 Ur Barbiturates Screen Negative (NEGATIVE) 01/08/18 06:32 Ur Phencyclidine Scrn Negative (NEGATIVE) 01/08/18 06:32 Ur Amphetamines Screen Negative (NEGATIVE) 01/08/18 06:32 U Benzodiazepines Scrn Negative (NEGATIVE) 01/08/18 06:32 U Oth Cocaine Metabols Negative (NEGATIVE) 01/08/18 06:32 U Cannabinoids Screen Negative (NEGATIVE) 01/08/18 06:32 Alcohol, Quantitative 91 mg/dl (0-10) H 01/08/18 02:40 HIV 1&2 Antibody Screen Negative (NEGATIVE) 01/08/18 11:49 - Hospital Course Hospital Course: HPI: 27 year old male with PMHx of acute pancreatitis & ?HTN presented to ED for 1 day history of sharp stabbing 10/10 epigastric abdominal pain that radiated up into his chest associated with nausea, non-bloody vomiting (too many episodes to count), dizziness, and subjective fevers. He took one Tylenol 325 mg for the symptoms without relief. He notes that prior to onset of pain, he had been drinking 12 24 oz beers daily for 1 week celebrating his birthday. He states his current symptoms feel similar to the pancreatitis he had 2 months ago, when he was admitted to [facility]. At time of admission patient notes his pain is now an 8/10, after receiving pain medication in the ED, and he has not vomited since coming to the ED. He denies recent travel, shortness of breath, numbness or tingling in his extremities, changes in his vision or hearing, headache, diaphoresis, diarrhea, constipation, hematuria, dysuria or sick contacts. Patient states his last drink was the day before yesterday PMD: None PMH: Acute pancreatitis, ?HTN Medications: Denies PSH: Denies Allergies: None Family History: Dad - DM (66 yo); Mom - healthy (55 yo) Social History: ETOH - drinks heavily intermittently; Tobacco - denies; Drugs - denies Code status: Full Code Hospital course: On admission, lipase was 3171. Pt was treated conservatively with IV fluids and treated for pain. Pt was seen and evaluated by the surgical team, as well as GI, and kept NPO overnight. Pt was treated for alcohol withdrawal including banana bag, ativan 1mg q6, and CIWA protocol. In addition, patient had previously been prescribed amlodipine for hypertension but was not taking it, so patient was restarted on amlodipine. CT Abd/Pelvis 01/08: Fluid stranding identified in the retroperitoneum, centered around the pancreas c/w pancreatitis. Possible developing phlegmous fluid collection measuring 4.1x1.4 cm at posterior body/tail. Small to moderate volume of free fluid in the pelvis. Mild L perinephric fat stranding. Abd US 01/08: Hepatic steatosis. Right upper pole cyst. Otherwise, unremarkable. CXR 01/08: No active disease EKG 01/08: Normal sinus rhythm, normal ekg General surgery as well as GI recommended conservative management, so patient was continued with IV hydration and prn pain management. Patient was discharged once his pain subsided and no acute lab abnormalities were present. Patient was discharged with plans for follow up regarding his renal cyst and hypertension, as well as plans to attend AA meetings and contact his sponsor. Plan: Patient is stable for discharge per Dr. Yeager. Patient should return to ER if symptoms return or worsen. Patient is to follow up with the [facility] for primary care follow up. We have discussed with the patient that he plans to attend alcoholics anonymous meetings and contact his sponsor. Patient should take amlodipine 10 mg daily as prescribed during his hospital stay and follow up in the clinic for BP monitoring. Discharge Exam - Head Exam Head Exam: ATRAUMATIC, NORMAL INSPECTION, NORMOCEPHALIC - Eye Exam Eye Exam: EOMI, Normal appearance Pupil Exam: NORMAL ACCOMODATION, PERRL - ENT Exam ENT Exam: Mucous Membranes Moist - Respiratory Exam Respiratory Exam: NORMAL BREATHING PATTERN, UNREMARKABLE - Cardiovascular Exam Cardiovascular Exam: REGULAR RHYTHM, +S1, +S2. absent: Systolic Murmur - Extremities Exam Extremities exam: normal inspection - Back Exam Back exam: NORMAL INSPECTION - Neurological Exam Neurological exam: Alert, CN II-XII Intact, Normal Gait, Oriented x3 - Skin Skin Exam: Dry, Intact, Normal Color, Warm Discharge Plan - Discharge Medications Prescriptions: RX: amLODIPine [Norvasc] 10 mg PO DAILY #30 tab - Follow Up Plan Condition: FAIR Disposition: HOME/ ROUTINE Patient education suggested?: Yes Instructions: Pancreatitis, Alcohol Use - When Is Drinking a Problem?, Amlodipine, Effects of Alcohol on Your Health Additional Instructions: Patient is stable for discharge per Dr. Yeager. Patient should return to ER if symptoms return or worsen. Patient is to follow up with the [facility] for primary care follow up. We have discussed with the patient that he plans to attend alcoholics anonymous meetings and contact his sponsor. Patient should take amlodipine 10 mg daily as prescribed during his hospital stay and follow up in the clinic for BP monitoring. El paciente est estable para el ivette por Dr. Yeager. El paciente debe regresar a la janell de emergencias si los sntomas reaparecen o empeoran. El paciente debe hacer un seguimiento con la kanika Caraballo para el seguimiento de la atenci n primaria. Hemos discutido con el paciente que planea asistir a reuniones an nimas de alcohlicos y contactar a carr patrocinador. El paciente debe radha 10 mg de amlodipina diariamente segn lo prescrito gail carr estada en el hospital y el seguimiento en la clnica para la monitorizacin de la PA. Referrals: Clinic,Med Surg [Non-Staff] - <Praveena Yeager V - Last Filed: 01/11/18 23:28> Provider - Provider Date of Admission: 01/08/18 06:55 Attending physician: Praveena Yeager, Hospital Course - Lab Results Lab Results: Micro Results 01/08/18 13:10 Blood Blood Culture - Preliminary NO GROWTH AFTER 3 DAYS 01/08/18 11:49 Blood Blood Culture - Preliminary NO GROWTH AFTER 3 DAYS 01/08/18 13:10 Urine Urine Culture - Final No Growth (<1,000 CFU/ML) Most Recent Lab Values WBC 5.6 K/uL (4.8-10.8) 01/10/18 08:07 RBC 4.27 Mil/uL (4.40-5.90) L 01/10/18 08:07 Hgb 14.3 g/dL (12.0-18.0) 01/10/18 08:07 Hct 40.6 % (35.0-51.0) 01/10/18 08:07 MCV 95.1 fL (80.0-94.0) H 01/10/18 08:07 MCH 33.4 pg (27.0-31.0) H 01/10/18 08:07 MCHC 35.1 g/dL (33.0-37.0) 01/10/18 08:07 RDW 12.9 % (11.5-14.5) 01/10/18 08:07 Plt Count 182 K/uL (130-400) 01/10/18 08:07 MPV 9.4 fL (7.2-11.7) 01/10/18 08:07 Neut % (Auto) 63.3 % (50.0-75.0) 01/10/18 08:07 Lymph % (Auto) 21.3 % (20.0-40.0) 01/10/18 08:07 [place] % (Auto) 9.4 % (0.0-10.0) 01/10/18 08:07 Eos % (Auto) 5.5 % (0.0-4.0) H 01/10/18 08:07 Baso % (Auto) 0.5 % (0.0-2.0) 01/10/18 08:07 Neut # (Auto) 3.5 K/uL (1.8-7.0) 01/10/18 08:07 Lymph # (Auto) 1.2 K/uL (1.0-4.3) 01/10/18 08:07 [place] # (Auto) 0.5 K/uL (0.0-0.8) 01/10/18 08:07 Eos # (Auto) 0.3 K/uL (0.0-0.7) 01/10/18 08:07 Baso # (Auto) 0.0 K/uL (0.0-0.2) 01/10/18 08:07 PT 12.0 SECONDS (9.7-12.2) 01/08/18 11:49 INR 1.1 01/08/18 11:49 Sodium 140 mmol/L (132-148) 01/10/18 08:07 Potassium 3.6 mmol/L (3.6-5.2) 01/10/18 08:07 Chloride 94 mmol/L (98-107) L 01/10/18 08:07 Carbon Dioxide 32 mmol/L (22-30) H 01/10/18 08:07 Anion Gap 17 (10-20) 01/10/18 08:07 BUN 5 mg/dL (9-20) L 01/10/18 08:07 Creatinine 0.6 mg/dL (0.8-1.5) L 01/10/18 08:07 Est GFR ( Amer) > 60 01/10/18 08:07 Est GFR (Non-Af Amer) > 60 01/10/18 08:07 Random Glucose 98 mg/dL (75-110) 01/10/18 08:07 Calcium 9.5 mg/dl (8.6-10.4) 01/10/18 08:07 Phosphorus 3.8 mg/dL (2.5-4.5) 01/10/18 08:07 Magnesium 2.0 mg/dL (1.6-2.3) 01/10/18 08:07 Total Bilirubin 0.9 mg/dL (0.2-1.3) 01/10/18 08:07 AST 44 U/L (17-59) 01/10/18 08:07 ALT 41 U/L (21-72) 01/10/18 08:07 Alkaline Phosphatase 73 U/L (38-126) 01/10/18 08:07 Ammonia 10 umol/L (9-33) 01/08/18 02:40 Lactate Dehydrogenase 497 U/L (313-618) 01/08/18 11:49 Total Protein 7.7 g/dL (6.3-8.3) 01/10/18 08:07 Albumin 4.4 g/dL (3.5-5.0) 01/10/18 08:07 Globulin 3.3 gm/dL (2.2-3.9) 01/10/18 08:07 Albumin/Globulin Ratio 1.3 (1.0-2.1) 01/10/18 08:07 Triglycerides 305 mg/dL (0-149) H 01/08/18 11:49 Cholesterol 123 mg/dL (0-199) 01/08/18 11:49 LDL Cholesterol Direct 52 mg/dL (0-129) 01/08/18 11:49 HDL Cholesterol 34 mg/dL (30-70) 01/08/18 11:49 Lipase 3171 U/L (23-300) H 01/08/18 02:40 Urine Color Straw (YELLOW) 01/08/18 13:10 Urine Clarity Clear (Clear) 01/08/18 13:10 Urine pH 6.0 (5.0-8.0) 01/08/18 13:10 Ur Specific [place] 1.013 (1.003-1.030) 01/08/18 13:10 Urine Protein Negative mg/dL (NEGATIVE) 01/08/18 13:10 Urine Glucose (UA) Normal mg/dL (Normal) 01/08/18 13:10 Urine Ketones Negative mg/dL (NEGATIVE) 01/08/18 13:10 Urine Blood Negative (NEGATIVE) 01/08/18 13:10 Urine Nitrate Negative (NEGATIVE) 01/08/18 13:10 Urine Bilirubin Negative (NEGATIVE) 01/08/18 13:10 Urine Urobilinogen Normal mg/dL (0.2-1.0) 01/08/18 13:10 Ur Leukocyte Esterase Neg Karl/uL (Negative) 01/08/18 13:10 Ur Squamous Epith Cells < 1 /hpf (0-5) 01/08/18 06:23 Urine Bacteria Rare (<OCC) 01/08/18 06:23 Urine Opiates Screen Positive (NEGATIVE) H 01/08/18 06:32 Urine Methadone Screen Negative (NEGATIVE) 01/08/18 06:32 Ur Barbiturates Screen Negative (NEGATIVE) 01/08/18 06:32 Ur Phencyclidine Scrn Negative (NEGATIVE) 01/08/18 06:32 Ur Amphetamines Screen Negative (NEGATIVE) 01/08/18 06:32 U Benzodiazepines Scrn Negative (NEGATIVE) 01/08/18 06:32 U Oth Cocaine Metabols Negative (NEGATIVE) 01/08/18 06:32 U Cannabinoids Screen Negative (NEGATIVE) 01/08/18 06:32 Alcohol, Quantitative 91 mg/dl (0-10) H 01/08/18 02:40 HIV 1&2 Antibody Screen Negative (NEGATIVE) 01/08/18 11:49 Attending/Attestation - Attestation I have personally seen and examined this patient.: Yes I have fully participated in the care of the patient.: Yes I have reviewed all pertinent clinical information, including history, physical exam and plan: Yes Notes (Text): This is late computer entry for 01/10/18. Patient seen, examined and case discussed with district medical examiner. Patient tolerated diet advanced at breakfast. Patient stable for discharge. Patient encouraged to maintain sobriety with [employer]; he is apart of the group, has maintain soberity for 3 months. Patient recommended to f/u in the clinic for blood pressure and secondary hypertension workup. Medications upon discharge: 1) Norvasc 10mg once a day (30 tabs/0) This is a summary of patient's hospitalization. please see EMR for further details of record. Assessment/Plan 1) Abdominal Pain-->Resolved Acute Alcoholic Pancreatitis-->Stable Assessment/Plan * GI (Dr. Gonzales) on board-->help appreciated * signed off * General surgery (Dr. Villasenor) on board-->help appreciated * No surgery intervention * Rhiannon's criteria - LDH (497) * 1% predicted mortality * Per BISAP score patient has <1 % risk of mortality * Imaging: CT abdomen/pelvis (01/08/18): Fluid stranding identified in the retroperitoneum centered around the pancreas consistent with acute pancreatitis. At the level of the posterior body/tail of the pancreas there is a somewhat loosely organized fluid collection measuring 4.1 x 1.4 cm, which represent a developing phlegmonous fluid collection. Small to moderate volume of free fluid evident in the pelvis. 1.7 cm low attenuation lesion seen in the upper pole of the right kidney. Mild left perinephric fat stranding and fluid * U/S (01/08/18): Hepatic steatosis, right upper pole cyst. otherwise unremarkable ultrasound * Diet advanced this morning; patient tolerated diet. Stable for discharge. 2) Nausea -->resolved Assessment/Plan * Zofran 4 mg IVP Q6H PRN 3) Essential Hypertension-->stable Assessment/Plan * Discharged on Norvasc 10mg once a day * Will need to follow-up with the clinc for secondary causes of hypertension given age and onset of blood pressure 4) Alcohol Use-->stable Assessment/Plan * CIWA, Aspiration and Seizure precautions initiated * c/w Thiamine 100mg PO daily, Folic acid 1mg PO daily, MVI 1 tab PO daily * Will need to follow-up with AA upon discharge 5) Tachycardia-->resolved Assessment/Plan * likely 2/2 to pain * Cxr - no active disease 6) Leukocytosis-->resolved Assessment/Plan * Likely inflammatory * Blood cultures X2 ordered, 30 min apart-->negative * UA and urine culture ordered-->negative 7) Renal cyst-->chronic Assessment/Plan * Noted on Abdominal US * patient will need outpatient renal US to monitor cyst to monitor 8) Prophylaxis * Ambulatory * SCDs while at rest * Seizure precautions
== END 2018-01-10 14:50 | disposition home or self-care (01) | DRG 204 ==
LOC: C.ER 02:05 → C.9E 06:55 → C.5S 07:45
PROVIDERS: ADMIT Family Medicine; ATTEND Hospitalist
DX: K85.20 Alcohol induced acute pancreatitis without necrosis or infection (principal); Y90.4 Blood alcohol level of 80-99 mg/100 ml; K70.0 Alcoholic fatty liver; F10.10 Alcohol abuse, uncomplicated; I15.9 Secondary hypertension, unspecified; R00.0 Tachycardia, unspecified; N28.1 Cyst of kidney, acquired; K29.70 Gastritis, unspecified, without bleeding